=== PATIENT | male | born 1975 | race Caucasian/White ===

== ENCOUNTER 2016-11-07 16:43 | Inpatient (IN) | payer MEDICAID ==
[~2016-11-07] VITALS: Ht 177.8 cm; Wt 102.0 kg
[2016-11-07] MEDS ORDERED: SOD CHLORIDE 0.9% 1,000 ML IV STA ×2 (17:54→18:44)
[2016-11-07 18:07] LABS: ADD SCAN DIFF NO
[2016-11-07 18:21] LABS: ALBUMIN 4.1 g/dl (3.3-4.9); HEMATOCRIT 41.4 % (42.0-52.0); HEMOGLOBIN 13.4 g/dl (14.0-18.0); MEAN CORPUSCULAR HEMOGLOBIN 21.6 pg (29.0-33.0); MEAN CORPUSCULAR HGB CONC 32.4 g/dl (32.0-37.0); MEAN CORPUSCULAR VOLUME 66.8 fl (82.0-101.0); MEAN PLATELET VOLUME 10.7 fl (7.4-10.4); PLATELET COUNT 243 10^3/UL (140-415); POTASSIUM 3.9 mmol/L (3.5-5.1); RED CELL DISTRIBUTION WIDTH 17.3 % (11.5-14.5); WHITE BLOOD COUNT 8.2 10^3/ul (4.8-10.8)
[2016-11-07 18:23] LABS: BILIRUBIN,INDIRECT 0.3 mg/dl (0-1.1); BILIRUBIN,TOTAL 0.3 mg/dl (0.2-1.3); CREATININE 0.62 mg/dl (0.61-1.24)
[2016-11-07 18:24] LABS: ALBUMIN/GLOBULIN RATIO 1.36; CALCIUM 9.6 mg/dl (8.4-10.2); TOTAL PROTEIN 7.1 g/dl (6.1-8.1)
[2016-11-07 19:07] LABS: ADD UMIC YES; URINE BILIRUBIN (Dip) NEGATIVE (NEGATIVE); URINE BLOOD (Dip) NEGATIVE (NEGATIVE); URINE COLOR LT. YELLOW (YELLOW); URINE GLUCOSE (Dip) >=1000 % (NEGATIVE); URINE KETONES (Dip) NEGATIVE (NEGATIVE); URINE LEUKOCYTE ESTERASE (Dip) TRACE (NEGATIVE); URINE NITRITE (Dip) NEGATIVE (NEGATIVE); URINE TOTAL PROTEIN (Dip) NEGATIVE (NEGATIVE); URINE UROBILINOGEN (Dip) 0.2 E.U./dL (0.1-1.0)
[2016-11-07 19:15] LABS: URINE RBCS 0-2 /HPF (0)
[2016-11-07 19:16] LABS: BACTERIA,URINE FEW
[2016-11-07] MEDS ORDERED: SOD CHLORIDE 0.9% 1,000 ML IV SCH (19:35)
--- NOTE | 2016-11-07 19:42 | ERA ---
ER Documentation Chief Complaint Date/Time DATE: 11/07/16 TIME: 19:40 Chief Complaint SMALLLACERATION FROM PENIS. BUT ALSO POLYDIPSIA AND URINATING FRQUENTLY HPI This is a 41-year-old male who presents to the emergency room for evaluation of multiple complaints. His first complaint was erythema and redness around his penis for the past week. His second complaint is frequent urination, and polydipsia for the past 2 weeks. This patient denies any history of diabetes and came to the ER today for evaluation of both symptoms. ROS All systems reviewed and are negative except as per history of present illness. Medications Home Meds No Active Prescriptions or Reported Meds Allergies Allergies: Coded Allergies: No Known Allergy (Unverified , 11/07/16) PMhx/Soc Medical and Surgical Hx: pt denies Medical Hx, pt denies Surgical Hx History of Surgery: No Anesthesia Reaction: No Hx Neurological Disorder: No Hx Respiratory Disorders: No Hx Cardiac Disorders: No Hx Psychiatric Problems: No Hx Miscellaneous Medical Probl: No Hx Alcohol Use: No Hx Substance Use: No Hx Tobacco Use: No Smoking Status: Never smoker Physical Exam Vitals Vital Signs Date Time Temp Pulse Resp B/P Pulse Ox O2 Delivery O2 Flow Rate FiO2 11/07/16 18:32 95 16 142/93 97 Room Air 11/07/16 16:47 98.8 116 20 141/89 97 Physical Exam INITIAL VITAL SIGNS: Reviewed by me GENERAL: The patient is well developed and appropriate for usual state of health in no apparent distress HEENT: Pupils equal, round, and reactive to light. EOMI. There is no scleral icterus. NECK: C-spine is soft and supple, there is no meningismus. There is no cervical lymphadenopathy. LUNGS: Clear to auscultation bilaterally. There are no rales, wheezes or rhonchi. HEART: Regular rate and rhythm, no murmurs, clicks, rubs or gallops. ABDOMEN: Soft, non-tender, non-distended. There are bowel sounds in all four quadrants. No rebound or guarding. EXTREMITIES: There is no peripheral cyanosis or edema. No focal swelling or erythema. NEUROLOGICAL: The patient moves all four extremities with 5/5 strength. Cranial nerves II - XII are intact. Normal gait. Alert and oriented SKIN: There is no apparent rash or petechiae. : Balanitis noted of the glans of the penis, no visible discharge from the urethra, no scrotal edema. No negative skin sloughing. HEME/LYMPHATIC: There is no evidence of excessive bruising or lymphedema. PSYCHIATRIC: The patient does not appear anxious or depressed. Result Diagram: 11/07/16 1800 11/07/16 1800 Results 24 hrs Laboratory Tests Test 11/07/16 16:53 11/07/16 18:00 11/07/16 18:50 Bedside Glucose 546mg/dL Alanine Aminotransferase (ALT/SGPT) 31IU/L Albumin 4.1g/dl Albumin/Globulin Ratio 1.36 Alkaline Phosphatase 198IU/L Anion Gap 21 Aspartate Amino Transf (AST/SGOT) 31IU/L Blood Urea Nitrogen 9mg/dl Calcium Level 9.6mg/dl Carbon Dioxide Level 23mmol/L Chloride Level 99mmol/L Creatinine 0.62mg/dl Direct Bilirubin 0.00mg/dl Globulin 3.00g/dl Glucose Level 565mg/dl Hematocrit 41.4% Hemoglobin 13.4g/dl Indirect Bilirubin 0.3mg/dl Lipase 72U/L Mean Corpuscular Hemoglobin 21.6pg Mean Corpuscular Hemoglobin Concent 32.4g/dl Mean Corpuscular Volume 66.8fl Mean Platelet Volume 10.7fl Platelet Count 41318^3/UL Potassium Level 3.9mmol/L Red Blood Count 6.2010^6/ul Red Cell Distribution Width 17.3% Sodium Level 139mmol/L Total Bilirubin 0.3mg/dl Total Protein 7.1g/dl White Blood Count 8.210^3/ul Urine Bacteria FEW Urine Bilirubin NEGATIVE Urine Clarity CLEAR Urine Color LT. YELLOW Urine Epithelial Cells OCCASIONAL Urine Glucose >=1000% Urine Hemoglobin NEGATIVE Urine Ketones NEGATIVE Urine Leukocyte Esterase TRACE Urine Microscopic RBC 0-2/HPF Urine Microscopic WBC 10-25/HPF Urine Nitrite NEGATIVE Urine Specific [place] <=1.005 Urine Total Protein NEGATIVE Urine Urobilinogen 0.2 E.U./dL Urine pH 6.0 Current Medications Medications (Trade) Dose Ordered Sig/Alycia Route PRN Reason Start Time Stop Time Status Last Admin Dose Admin Sodium Chloride 1,000 ml @ 1,000 mls/hr Q1H STAT IV 11/07/16 17:54 11/07/16 18:53 DC 11/07/16 18:06 Sodium Chloride (NS) 1,000 ml @ 1,000 mls/hr Q1H STAT IV 11/07/16 18:44 11/07/16 19:43 11/07/16 18:52 Fluconazole 150 mg 150 mg ONCE ONCE PO 11/07/16 20:00 11/07/16 20:01 Sodium Chloride (NS) 1,000 ml @ 80 mls/hr [id number] IV 11/07/16 19:35 11/08/16 08:04 Ondansetron HCl (Zofran Inj) 4 mg BRIDGE ORDER PRN IV NAUSEA AND/OR VOMITING 11/07/16 20:00 11/08/16 19:59 Acetaminophen (Tylenol Tab) 650 mg ER BRIDGE PRN PO MILD PAIN/FEVER 11/07/16 20:00 11/08/16 19:59 Procedures/MDM This 41-year-old male presents to the ER for evaluation of polyuria, polydipsia , and erythema of the penis. When I evaluated this patient I did note balanitis of the penis. He did have a blood sugar obtained which was greater than 500 in triage. This patient has no history of diabetes. The patient has no follow-up as an outpatient, does not see primary care physician. This patient was given 2 L of IV fluid, he was given 15 units of subcutaneous insulin. Urinalysis does not show any ketones. This patient has no signs of DKA at this time. However given his symptoms, his elevated blood sugar, and is likely follow-up this patient will be placed in for admission at this time for further workup and possible p.o. medications for home. This patient will be placed on the [facility] floor and will be admitted under the care of Dr. Herrera. Departure Diagnosis: Primary Impression: New onset type 2 diabetes mellitus Additional Impressions: Balanitis Microcytic anemia Condition: Stable (0325) ATA CAMPBELL DO Nov 07, 2016 19:42
[2016-11-07 19:48] LABS: PLATELET ESTIMATE PLT APPEAR ADEQUATE; PLATELETS CLUMPS FEW
[2016-11-07] MEDS ORDERED: NA PHOSPHATE/BIPHOS 133 ML ENEMA PR PRN (20:00)
[2016-11-07] MEDS ORDERED: HYDROCODONE/APAP (5/325) TAB PO PRN (20:00)
[2016-11-07] MEDS ORDERED: DOCUSATE SODIUM 100 MG CAP PO PRN (20:00)
[2016-11-07] MEDS ORDERED: ALBUTEROL/IPRATROPIUM (NEB) 3 ML AMP HHN PRN (20:00)
[2016-11-07] MEDS ORDERED: LORAZEPAM 2 MG INJ IV PRN (20:00)
[2016-11-07] MEDS ORDERED: NACL 0.9% 3 ML SYG IV SCH (20:00)
[2016-11-07] MEDS ORDERED: FLUCONAZOLE 150 MG TAB PO ONE (20:00)
[2016-11-07] MEDS ORDERED: INSULIN REGULAR, HUMAN 100 UNIT/1 ML 3ML VIAL SC ONE (20:00)
[2016-11-07] MEDS ORDERED: MAGNESIUM HYDROXIDE 30ML CUP PO PRN (20:00)
[2016-11-07] MEDS ORDERED: ONDANSETRON 4 MG INJ IV PRN ×2 (20:00)
[2016-11-07] MEDS ORDERED: ACETAMINOPHEN 325 MG TAB PO PRN (20:00)
[2016-11-07] MEDS ORDERED: hydrALAzine 20 MG INJ IV PRN (20:00)
[2016-11-07] MEDS ORDERED: morphine 2 MG INJ IV PRN (20:00)
[2016-11-07] MEDS ORDERED: NITROGLYCERIN (SL) 0.4 MG TAB SL PRN (20:00)
[2016-11-07] MEDS ORDERED: SOD CHLORIDE 0.45% 1,000 ML IV SCH (21:12)
[2016-11-07 21:20] VITALS: BP 141/92; RESP 20
[2016-11-07] MEDS ORDERED: DEXTROSE 50% 50 ML SYRINGE IV PRN ×2 (21:30)
[2016-11-07] MEDS ORDERED: GLUCOSE GEL 15 GRAM TUBE PO PRN ×2 (21:30)
[2016-11-07] MEDS ORDERED: GLUCAGON 1 MG INJ IM PRN (21:30)
[2016-11-07] MEDS ORDERED: GLUCOSE GEL 15 GRAM TUBE BUCCAL PRN (21:30)
[2016-11-07 22:13] VITALS: Ht 177.8 cm; Wt 102.0 kg
[2016-11-07] MEDS: HEPARIN 5,000 UNIT/0.5 ML SYG SC SCH (22:36)
[2016-11-07] MEDS: CEFTRIAXONE 1 GM/50 ML (PMX) 50 ML IVPB SCH (22:37)
[2016-11-07] MEDS: INSULIN GLARGINE [LANtus] 3 ML PEN SC SCH (23:47)
[2016-11-07] MEDS: INSULIN ASPART [NOVOLOG] 3 ML PEN SC SCH (23:48)
[2016-11-08] MEDS: SOD CHLORIDE 0.9% 1,000 ML IV SCH ×4 (02:30→21:54)
--- NOTE | 2016-11-08 03:28 | HP ---
DATE OF ADMISSION: 11/07/2016 The patient was seen and examined by me on 11/07/2016 at 8:30 p.m. This is a 41-year-old male. CHIEF COMPLAINT: Penile pain and polydipsia and urinary frequency. HISTORY OF PRESENT ILLNESS: A 41-year-old male with no significant past medical history who has bee n complaining of redness and pain as well as erythema around his penis for the past week. He has al so had increased urinary frequency and polydipsia for the last 2 weeks as well. Denies any prior hi story of any diabetes. No chest pain. No shortness of breath. No headaches or dizziness or loss o f consciousness. No fevers or chills. No nausea, vomiting. No diarrhea and no constipation. When he came into the ER, his blood sugar was found to be 546 and his CO2 levels were normal. PAST MEDICAL HISTORY: As stated above. ALLERGIES: NO KNOWN DRUG ALLERGIES. MEDICATIONS AT HOME: None. PAST SURGICAL HISTORY: None. SOCIAL HISTORY: Negative for smoking, drinking, or IV drug abuse. FAMILY HISTORY: Noncontributory. PHYSICAL EXAMINATION: VITAL SIGNS: Today, T-max 98.8, pulse 116 to 95, respirations 16 to 20, blood pressure 141/89, satu rating at 97% on room air. GENERAL: The patient is lying in bed, answering questions. No acute distress. HEENT: Pupils equal, round, react to light. Extraocular muscles intact. NECK: Supple, no thyromegaly. LUNGS: Clear to auscultation bilaterally. CARDIOVASCULAR: S1, S2 heard. No rubs or gallops. ABDOMEN: Soft, nontender, nondistended. Normal bowel sounds. No rebound or guarding. MUSCULOSKELETAL: No lower extremity edema bilaterally. NEUROLOGIC: No focal deficits. GENITOURINARY: There is balanitis noted around the glans of the penis. No discharge from the ureth ra. No scrotal edema. PSYCHIATRIC: Normal mood and affect. LABORATORIES: CBC is normal. This comprehensive metabolic panel is normal except the sugar was 565 and the alkaline phosphatase was 198. UA shows trace leukocyte esterase positive, a few bacteria. ASSESSMENT AND PLAN: A 41-year-old male coming in with elevated blood sugars and redness and erythe ma around the penile area, signs of balanitis. 1. Elevated blood sugars. Again, admit the patient to med/surg floor. We will check an A1c. Put him on IV fluids, give him insulin as well, put him on Lantus and moderate insulin sliding scale. M ost likely the patient has signs of diabetes. He denies any prior history of diabetes. Will check a TSH, A1c and lipid panel as well. Tylenol p.r.n. pain and fevers as well, again, IV fluids. He d id get 15 units of subcutaneous insulin regular in the emergency room. 2. Balanitis, again most likely the diagnosis of his erythema of the penis, will put patient on flu conazole as well. 3. Increased urinary frequency. There are signs of a possible urinary tract infection on the UA. UA is positive, put him on Rocephin antibiotics. Follow up final culture results as well. 4. Microcytic anemia. No present issues. Continue to monitor for now. 5. Gastrointestinal prophylaxis, proton pump inhibitor. 6. Deep venous thrombosis prophylaxis, heparin subQ. Dictated By: PIERRE DAIGLE Conf#: [id number] DID#: [id number]
[2016-11-08 06:02] LABS: CHOL/HDL RATIO 4.9 RATIO
[2016-11-08] MEDS: PANTOPRAZOLE (EC) 40 MG TAB PO SCH (06:02)
[2016-11-08 06:30] LABS: THYROID STIMULATING HORMONE 2.17 MIU/L (0.465-4.680)
[2016-11-08 06:47] LABS: ADD SCAN DIFF NO
[2016-11-08 06:54] LABS: BASOPHILS % 0.3 % (0.0-2.0); EOSINOPHILS # 0.2 10^3/ul (0.0-0.5); EOSINOPHILS % 3.1 % (0.0-7.0); HEMATOCRIT 38.5 % (42.0-52.0); HEMOGLOBIN 12.4 g/dl (14.0-18.0); LYMPHOCYTES # 2.4 10^3/ul (0.8-2.9); LYMPHOCYTES % 35.7 % (15.0-51.0); MEAN CORPUSCULAR HEMOGLOBIN 21.7 pg (29.0-33.0); MEAN CORPUSCULAR HGB CONC 32.2 g/dl (32.0-37.0); MEAN CORPUSCULAR VOLUME 67.3 fl (82.0-101.0); MEAN PLATELET VOLUME 11.1 fl (7.4-10.4); MONOCYTE # 0.8 10^3/ul (0.3-0.9); MONOCYTES % 11.6 % (0.0-11.0); NEUTROPHIL # 3.3 10^3/ul (1.6-7.5); PLATELET COUNT 234 10^3/UL (140-415); RED BLOOD COUNT 5.72 10^6/ul (4.70-6.10); RED CELL DISTRIBUTION WIDTH 18.1 % (11.5-14.5); WHITE BLOOD COUNT 6.7 10^3/ul (4.8-10.8)
[2016-11-08 07:37] LABS: POTASSIUM 3.5 mmol/L (3.5-5.1)
[2016-11-08 07:40] LABS: CREATININE 0.58 mg/dl (0.61-1.24)
[2016-11-08 07:41] LABS: CALCIUM 8.5 mg/dl (8.4-10.2); MAGNESIUM 1.9 mg/dl (1.7-2.5); PHOSPHORUS 3.6 mg/dl (2.5-4.9)
[2016-11-08 07:45] VITALS: BP 131/86; RESP 16
[2016-11-08] MEDS: FLUCONAZOLE 100 MG/NS (PMX) 50 ML IVPB SCH (08:00)
[2016-11-08] MEDS: HEPARIN 5,000 UNIT/0.5 ML SYG SC SCH ×2 (08:10→21:03)
[2016-11-08] MEDS: INSULIN ASPART [NOVOLOG] 3 ML PEN SC SCH ×4 (08:11→21:02)
[2016-11-08 13:14] LABS: IRON 148 ug/dl (35-150)
[2016-11-08 13:24] LABS: TOTAL IRON BINDING CAPACITY 290 ug/dl (241-421)
--- NOTE | 2016-11-08 13:50 | PN ---
DATE: 11/08/2016 TIME OF EVALUATION: 1:15 p.m. SUBJECTIVE DATA: Blood sugar is fairly well controlled. Complains of penile pain and difficulty in initiating urinary stream. OBJECTIVE DATA: VITAL SIGNS: Temperature 98.0, pulse rate 87, respiratory rate 60, blood pressure 131/86, oxygen saturation 97% on room air. GENERAL: This is an obese male lying in bed in no apparent distress. HEENT: Head normocephalic and atraumatic. Eyes: Anicteric sclerae. Conjunctivae clear. Right eye nonfunctional. NECK: Supple. No JVD noticed. RESPIRATORY: Bilaterally clear to auscultation. No adventitious breath sounds. No use of accessory muscles of respiration. CARDIAC: Regular rate and rhythm. No murmurs. ABDOMEN: Soft, nontender and nondistended. Bowel sounds positive in all 4 quadrants. GENITOURINARY: Uncircumcised penis with phimosis and erythema and edema of the penile tip. Unable to visualize the glans penis because of phimosis. No scrotal swelling. No secretions or discharges from the penis. EXTREMITIES: No cyanosis, no clubbing, no edema. Peripheral pulses palpable. NEUROLOGIC: The patient is awake, alert and oriented. Cranial nerves are grossly intact. LABORATORY AND DIAGNOSTIC DATA: WBC 6.7, hemoglobin 12.4, hematocrit 38.5, platelet count 234. Sodium 144, potassium 3.5, chloride 106, carbon dioxide 26 , anion gap 16, BUN 7, creatinine 0.58, glucose 204, calcium 8.5, phosphorus 3.6 , magnesium 1.9. ASSESSMENT AND PLAN: 1. Type 2 diabetes mellitus. New onset. Hemoglobin A1c 12.0. Continue sliding scale insulin along with Lantus insulin. Diabetes education consult ordered. Dietary consult ordered. 2. Balanitis with underlying phimosis. The patient on antibiotics. Called the on-call urologist, Dr. Busby on 11/08/2016 at 1:20 p.m. As per the conversation with Dr. Busby, the patient most probably needs a circumcision. However, "this can be done as outpatient." Therefore to treat the patient with antibiotics and to discharge the patient home to be followed up with outpatient urology as per Dr. Busby. 3. Obesity. BMI of 32.3 kilograms per meter squared. Dietary consult ordered. Weight reduction advised. 4. Dyslipidemia with hypertriglyceridemia. Will start the patient on fish oil. 5. Fluid, electrolytes and nutrition. Carbohydrate controlled diet. 6. Microcytic hypochromic anemia. Etiology unclear. We will obtain an iron panel on this patient. We will monitor the H and H closely. 7. Deep vein thrombosis prophylaxis. Subcutaneous heparin. 8. Gastrointestinal prophylaxis. Proton pump inhibitors. PLAN: Continue antibiotics. Await further diabetes education input. Await dietary consult. Case discussed with Dr. Eller. RACQUEL ELLER MD, AM/[facility]ALO Conf#: [id number] DID#: [id number] MTDD
[2016-11-08 20:57] VITALS: BP 136/84; RESP 20
[2016-11-08] MEDS: FISH OIL 1,000 MG CAP PO SCH (20:57)
[2016-11-08] MEDS: CEFTRIAXONE 1 GM/50 ML (PMX) 50 ML IVPB SCH (20:57)
[2016-11-08] MEDS: INSULIN GLARGINE [LANtus] 3 ML PEN SC SCH (21:02)
[2016-11-09] MEDS: SOD CHLORIDE 0.9% 1,000 ML IV SCH ×5 (00:09→18:46)
[2016-11-09 05:41] LABS: ADD SCAN DIFF NO
[2016-11-09] MEDS: PANTOPRAZOLE (EC) 40 MG TAB PO SCH (05:53)
[2016-11-09 05:56] LABS: BASOPHILS % 0.5 % (0.0-2.0); EOSINOPHILS # 0.2 10^3/ul (0.0-0.5); EOSINOPHILS % 2.9 % (0.0-7.0); HEMATOCRIT 40.6 % (42.0-52.0); HEMOGLOBIN 12.9 g/dl (14.0-18.0); LYMPHOCYTES # 2.1 10^3/ul (0.8-2.9); LYMPHOCYTES % 32.5 % (15.0-51.0); MEAN CORPUSCULAR HEMOGLOBIN 21.6 pg (29.0-33.0); MEAN CORPUSCULAR HGB CONC 31.8 g/dl (32.0-37.0); MEAN CORPUSCULAR VOLUME 68.1 fl (82.0-101.0); MEAN PLATELET VOLUME 10.6 fl (7.4-10.4); MONOCYTE # 0.7 10^3/ul (0.3-0.9); NEUTROPHIL # 3.4 10^3/ul (1.6-7.5); NEUTROPHILS % 52.6 % (39.0-77.0); PLATELET COUNT 252 10^3/UL (140-415); RED BLOOD COUNT 5.96 10^6/ul (4.70-6.10); RED CELL DISTRIBUTION WIDTH 17.8 % (11.5-14.5); WHITE BLOOD COUNT 6.5 10^3/ul (4.8-10.8)
[2016-11-09 06:04] LABS: MAGNESIUM 2.1 mg/dl (1.7-2.5); PHOSPHORUS 2.9 mg/dl (2.5-4.9)
[2016-11-09 06:35] LABS: POTASSIUM 3.8 mmol/L (3.5-5.1)
[2016-11-09 06:38] LABS: CREATININE 0.66 mg/dl (0.61-1.24)
[2016-11-09 06:39] LABS: CALCIUM 8.3 mg/dl (8.4-10.2)
[2016-11-09 07:37] VITALS: BP 132/91; RESP 18
[2016-11-09] MEDS: FLUCONAZOLE 100 MG/NS (PMX) 50 ML IVPB SCH (08:02)
[2016-11-09] MEDS: FISH OIL 1,000 MG CAP PO SCH ×2 (08:02→20:34)
[2016-11-09] MEDS: INSULIN ASPART [NOVOLOG] 3 ML PEN SC SCH ×4 (08:16→20:34)
[2016-11-09] MEDS: HEPARIN 5,000 UNIT/0.5 ML SYG SC SCH ×2 (08:17→20:36)
[2016-11-09] MEDS: CHOLECALCIFEROL 1,000 UNIT TAB PO SCH (09:06)
[2016-11-09 14:43] LABS: TOTAL CELLS COUNTED % 100
--- NOTE | 2016-11-09 16:56 | PN ---
Date/Time of Note Date/Time of Note DATE: 11/09/16 TIME: 16:54 Assessment/Plan VTE Prophylaxis VTE Prophylaxis Intervention: heparin Lines/Catheters IV Catheter Type (from Nrs): Peripheral IV Assessment/Plan Assessment/Plan 1. Type 2 diabetes mellitus. New onset. Hemoglobin A1c 12.0. Continue sliding scale insulin along with Lantus insulin. Diabetes education consult ordered. Dietary consult ordered. 2. Scrotal cellulitis/balanitis and underlying phimosis- on IV abx Called the on-call urologist, Dr. Busby on 11/08/2016 at 1:20 p.m. As per the conversation with Dr. Busby, the patient most probably needs a circumcision. However, "this can be done as outpatient." Therefore to treat the patient with antibiotics and to discharge the patient home to be followed up with outpatient urology as per Dr. Busby. 3. Obesity. BMI of 32.3 kilograms per meter squared. Dietary consult ordered. Weight reduction advised. 4. Dyslipidemia with hypertriglyceridemia on fish oil 5. Fluid, electrolytes and nutrition. Carbohydrate controlled diet. 6. Microcytic hypochromic anemia. Etiology unclear. We will obtain an iron panel on this patient. We will monitor the H and H closely. 7. Deep vein thrombosis prophylaxis. Subcutaneous heparin. 8. Gastrointestinal prophylaxis. Proton pump inhibitors. PLAN: Continue IV abx, Blood sugar control lantus pt will need few more days of IV abx and better sugar control wll follow up Subjective 24 Hr Interval Summary Free Text/Dictation still c/o significant scrotal pain, afebrile, BP stable Exam/Review of Systems Vital Signs Vitals Vital Signs Date Time Temp Pulse Resp B/P Pulse Ox O2 Delivery O2 Flow Rate FiO2 11/09/16 07:37 98.0 80 18 132/91 97 11/07/16 20:43 Room Air Intake and Output 11/08/16 11/08/16 11/09/16 15:00 23:00 07:00 Intake Total 2009 ml 1600 ml Balance 2009 ml 1600 ml Exam GENERAL: This is an obese male lying in bed in no apparent distress. HEENT: Head normocephalic and atraumatic. Eyes: Anicteric sclerae. Conjunctivae clear. Right eye nonfunctional. NECK: Supple. No JVD noticed. RESPIRATORY: Bilaterally clear to auscultation. No adventitious breath sounds. No use of accessory muscles of respiration. CARDIAC: Regular rate and rhythm. No murmurs. ABDOMEN: Soft, nontender and nondistended. Bowel sounds positive in all 4 quadrants. GENITOURINARY: Uncircumcised penis with phimosis and erythema and edema of the penile tip. Unable to visualize the glans penis because of phimosis. No scrotal swelling. No secretions or discharges from the penis. EXTREMITIES: No cyanosis, no clubbing, no edema. Peripheral pulses palpable. NEUROLOGIC: The patient is awake, alert and oriented. Cranial nerves are grossly intact. Results Result Diagram: 11/09/16 0515 11/09/16 0515 Results 24 hrs Laboratory Tests Test 11/08/16 16:57 11/08/16 20:58 11/09/16 05:15 11/09/16 07:45 Bedside Glucose 231 H 258 H 167 Anion Gap 15 Basophils # 0.0 Basophils % 0.5 Blood Urea Nitrogen 6 L Calcium Level 8.3 L Carbon Dioxide Level 28 Chloride Level 105 Creatinine 0.66 Eosinophils # 0.2 Eosinophils % 2.9 Glucose Level 181 HIV (1&2) Antibody NEGATIVE Hematocrit 40.6 L Hemoglobin 12.9 L Lymphocytes # 2.1 Lymphocytes % 32.5 Magnesium Level 2.1 Mean Corpuscular Hemoglobin 21.6 L Mean Corpuscular Hemoglobin Concent 31.8 L Mean Corpuscular Volume 68.1 L Mean Platelet Volume 10.6 H Monocytes # 0.7 Monocytes % 11.0 Neutrophils # 3.4 Neutrophils % 52.6 Nucleated Red Blood Cells # 0.0 Nucleated Red Blood Cells % 0.0 Phosphorus Level 2.9 Platelet Count 252 Potassium Level 3.8 Red Blood Count 5.96 Red Cell Distribution Width 17.8 H Sodium Level 144 White Blood Count 6.5 Test 11/09/16 11:36 Bedside Glucose 264 H Medications Medications Current Medications Ondansetron HCl (Zofran Inj) 4 mg Q6H PRN IV NAUSEA AND/OR VOMITING; Start at 20:00 Acetaminophen (Tylenol Tab) 650 mg Q6H PRN PO PAIN LEVEL 1-3 OR FEVER; Start at 20:00 Acetaminophen/ Hydrocodone Bitart ([place] (5/325)) 1 tab Q6H PRN PO MODERATE PAIN LEVEL 4-6; Start 11/07/16 at 20:00 Morphine Sulfate (morphine) 2 mg Q4H PRN IV SEVERE PAIN LEVEL 7-10; Start 11/07 at 20:00 Docusate Sodium (Colace) 100 mg Q12H PRN PO CONSTIPATION; Start 11/07/16 at 20: 00 Magnesium Hydroxide (Milk Of Mag) 30 ml DAILY PRN PO CONSTIPATION; Start at 20:00 Sodium Biphosphate/ Sodium Phosphate (Fleet Enema) 133 ml DAILY PRN [place] CONSTIPATION; Start 11/07/16 at 20:00 Pantoprazole (Protonix Tab) 40 mg DAILY@06 PO Last administered on 11/09/16 05 :53; Admin Dose 40 MG; Start 11/08/16 at 06:00 Heparin Sodium (Porcine) (Heparin (5000 Units/0.5 ml)) 5,000 unit Q12 SC Last administered on 11/09/16 08:17; Admin Dose 5,000 UNIT; Start 11/07/16 at 21:00 Lorazepam (Ativan) 0.5 mg Q6H PRN IV ANXIETY; Start 11/07/16 at 20:00 Hydralazine HCl (Apresoline) 10 mg Q6H PRN IV ELEVATED BLOOD PRESSURE; Start at 20:00 Nitroglycerin (Nitroglycerin (Sl Tab) 0.4 Mg) 1 tab Q5M PRN SL ANGINA; Start at 20:00 Insulin Glargine 20 unit 20 unit DAILY@20 SC Last administered on 11/08/16 21: 02; Admin Dose 20 UNIT; Start 11/07/16 at 22:00 Fluconazole/ Sodium Chloride 50 ml @ 50 mls/hr Q24H IVPB Last administered on 08:02; Admin Dose 50 MLS/HR; Start 11/08/16 at 09:00 Ceftriaxone Sodium (Rocephin) 50 ml @ 100 mls/hr Q24H IVPB Last administered on 11/08/16 20:57; Admin Dose 100 MLS/HR; Start 11/07/16 at 21:30 Miscellaneous Information 1 ea NOTE XX ; Start 11/07/16 at 21:30 Glucose (Glutose) 15 gm Q15M PRN PO DECREASED GLUCOSE; Start 11/07/16 at 21:30 Glucose (Glutose) 22.5 gm Q15M PRN PO DECREASED GLUCOSE; Start 11/07/16 at 21: 30 Dextrose (D50w Syringe) 25 ml Q15M PRN IV DECREASED GLUCOSE; Start 11/07/16 at 21:30 Dextrose (D50w Syringe) 50 ml Q15M PRN IV DECREASED GLUCOSE; Start 11/07/16 at 21:30 Glucagon (Glucagen) 1 mg Q15M PRN IM DECREASED GLUCOSE; Start 11/07/16 at 21:30 Glucose 15 gm 15 gm Q15M PRN BUCCAL DECREASED GLUCOSE; Start 11/07/16 at 21:30 Sodium Chloride (NS) 1,000 ml @ 150 mls/hr Q6H40M IV Last administered on 11/09 07:24; Admin Dose 150 MLS/HR; Start 11/08/16 at 02:30 Fish Oil (Fish Oil) 1,000 mg BID PO Last administered on 11/09/16 08:02; Admin Dose 1,000 MG; Start 11/08/16 at 21:00 Cholecalciferol (Vitamin D) 1,000 unit DAILY PO Last administered on 11/09/16 09:06; Admin Dose 1,000 UNIT; Start 11/09/16 at 09:00 THIEN MCCARTNEY MD Nov 09, 2016 16:56
[2016-11-09 20:21] VITALS: BP 133/89; RESP 20
[2016-11-09] MEDS: INSULIN GLARGINE [LANtus] 3 ML PEN SC SCH (20:36)
[2016-11-09] MEDS: CEFTRIAXONE 1 GM/50 ML (PMX) 50 ML IVPB SCH (21:52)
[2016-11-09] MEDS: ACETAMINOPHEN 325 MG TAB PO PRN (21:55)
[2016-11-10] MEDS: SOD CHLORIDE 0.9% 1,000 ML IV SCH ×5 (00:55→22:29)
[2016-11-10] MEDS: PANTOPRAZOLE (EC) 40 MG TAB PO SCH (05:43)
[2016-11-10] MEDS: INSULIN ASPART [NOVOLOG] 3 ML PEN SC SCH ×4 (07:58→21:10)
[2016-11-10 08:18] VITALS: BP 147/99; RESP 16
[2016-11-10 08:50] LABS: ADD SCAN DIFF NO
[2016-11-10 08:59] LABS: BASOPHILS % 0.4 % (0.0-2.0); EOSINOPHILS # 0.2 10^3/ul (0.0-0.5); EOSINOPHILS % 2.3 % (0.0-7.0); HEMATOCRIT 42.4 % (42.0-52.0); HEMOGLOBIN 13.3 g/dl (14.0-18.0); LYMPHOCYTES # 2.1 10^3/ul (0.8-2.9); MEAN CORPUSCULAR HEMOGLOBIN 21.3 pg (29.0-33.0); MEAN CORPUSCULAR HGB CONC 31.4 g/dl (32.0-37.0); MEAN CORPUSCULAR VOLUME 68.1 fl (82.0-101.0); MONOCYTE # 0.6 10^3/ul (0.3-0.9); MONOCYTES % 9.1 % (0.0-11.0); NEUTROPHIL # 4.1 10^3/ul (1.6-7.5); NEUTROPHILS % 57.8 % (39.0-77.0); PLATELET COUNT 258 10^3/UL (140-415); RED BLOOD COUNT 6.23 10^6/ul (4.70-6.10); RED CELL DISTRIBUTION WIDTH 18.6 % (11.5-14.5)
[2016-11-10 09:12] LABS: POTASSIUM 3.8 mmol/L (3.5-5.1)
[2016-11-10 09:15] LABS: CREATININE 0.55 mg/dl (0.61-1.24)
[2016-11-10 09:16] LABS: CALCIUM 8.5 mg/dl (8.4-10.2)
[2016-11-10] MEDS: FLUCONAZOLE 100 MG/NS (PMX) 50 ML IVPB SCH (09:41)
[2016-11-10] MEDS: FISH OIL 1,000 MG CAP PO SCH ×2 (09:41→21:05)
[2016-11-10] MEDS: CHOLECALCIFEROL 1,000 UNIT TAB PO SCH (09:41)
[2016-11-10] MEDS: HEPARIN 5,000 UNIT/0.5 ML SYG SC SCH ×2 (09:48→21:08)
--- NOTE | 2016-11-10 11:29 | PN ---
Date/Time of Note Date/Time of Note DATE: 11/10/16 TIME: 11:28 Assessment/Plan VTE Prophylaxis VTE Prophylaxis Intervention: SCD's Lines/Catheters IV Catheter Type (from Nrs): Peripheral IV Assessment/Plan Assessment/Plan 1. Type 2 diabetes mellitus. New onset. Hemoglobin A1c 12.0. Continue sliding scale insulin along with Lantus insulin. Diabetes education consult ordered. Dietary consult ordered. 2. Scrotal cellulitis/balanitis and underlying phimosis- on IV abx Called the on-call urologist, Dr. Busby on 11/08/2016 at 1:20 p.m. As per the conversation with Dr. Busby, the patient most probably needs a circumcision. However, "this can be done as outpatient." Therefore to treat the patient with antibiotics and to discharge the patient home to be followed up with outpatient urology as per Dr. Busby. 3. Obesity. BMI of 32.3 kilograms per meter squared. Dietary consult ordered. Weight reduction advised. 4. Dyslipidemia with hypertriglyceridemia on fish oil 5. Fluid, electrolytes and nutrition. Carbohydrate controlled diet. 6. Microcytic hypochromic anemia. Etiology unclear. We will obtain an iron panel on this patient. We will monitor the H and H closely. 7. Deep vein thrombosis prophylaxis. Subcutaneous heparin. 8. Gastrointestinal prophylaxis. Proton pump inhibitors. PLAN: Continue IV abx, Blood sugar control lantus pt will need few more days of IV abx and better sugar control wll follow up Subjective 24 Hr Interval Summary Free Text/Dictation still has bad cellultiis, pain 6/10, afebrile, BP stable Exam/Review of Systems Vital Signs Vitals Vital Signs Date Time Temp Pulse Resp B/P Pulse Ox O2 Delivery O2 Flow Rate FiO2 11/10/16 08:18 98.2 87 16 147/99 97 11/07/16 20:43 Room Air Intake and Output 11/09/16 11/09/16 11/10/16 15:00 23:00 07:00 Intake Total 250 ml 3630 ml 2100 ml Balance 250 ml 3630 ml 2100 ml Exam GENERAL: This is an obese male lying in bed in no apparent distress. HEENT: Head normocephalic and atraumatic. Eyes: Anicteric sclerae. Conjunctivae clear. Right eye nonfunctional. NECK: Supple. No JVD noticed. RESPIRATORY: Bilaterally clear to auscultation. No adventitious breath sounds. No use of accessory muscles of respiration. CARDIAC: Regular rate and rhythm. No murmurs. ABDOMEN: Soft, nontender and nondistended. Bowel sounds positive in all 4 quadrants. GENITOURINARY: Uncircumcised penis with phimosis and erythema and edema of the penile tip. Unable to visualize the glans penis because of phimosis. No scrotal swelling. No secretions or discharges from the penis. EXTREMITIES: No cyanosis, no clubbing, no edema. Peripheral pulses palpable. NEUROLOGIC: The patient is awake, alert and oriented. Cranial nerves are grossly intact. Results Result Diagram: 11/10/16 0754 11/10/16 0754 Results 24 hrs Laboratory Tests Test 11/09/16 11:36 11/09/16 20:34 11/10/16 07:52 11/10/16 07:54 Bedside Glucose 264 H 144 144 Anion Gap 17 H Basophils # 0.0 Basophils % 0.4 Blood Urea Nitrogen 9 Calcium Level 8.5 Carbon Dioxide Level 25 Chloride Level 105 Creatinine 0.55 L Eosinophils # 0.2 Eosinophils % 2.3 Glucose Level 136 # Hematocrit 42.4 Hemoglobin 13.3 L Lymphocytes # 2.1 Lymphocytes % 30.0 Mean Corpuscular Hemoglobin 21.3 L Mean Corpuscular Hemoglobin Concent 31.4 L Mean Corpuscular Volume 68.1 L Mean Platelet Volume 11.0 H Monocytes # 0.6 Monocytes % 9.1 Neutrophils # 4.1 Neutrophils % 57.8 Nucleated Red Blood Cells # 0.0 Nucleated Red Blood Cells % 0.0 Platelet Count 258 Potassium Level 3.8 Red Blood Count 6.23 H Red Cell Distribution Width 18.6 H Sodium Level 143 White Blood Count 7.0 Medications Medications Current Medications Ondansetron HCl (Zofran Inj) 4 mg Q6H PRN IV NAUSEA AND/OR VOMITING; Start at 20:00 Acetaminophen (Tylenol Tab) 650 mg Q6H PRN PO PAIN LEVEL 1-3 OR FEVER Last administered on 11/09/16t 21:55; Admin Dose 650 MG; Start 11/07/16 at 20:00 Acetaminophen/ Hydrocodone Bitart ([place] (5/325)) 1 tab Q6H PRN PO MODERATE PAIN LEVEL 4-6; Start 11/07/16 at 20:00 Morphine Sulfate (morphine) 2 mg Q4H PRN IV SEVERE PAIN LEVEL 7-10; Start 11/07 at 20:00 Docusate Sodium (Colace) 100 mg Q12H PRN PO CONSTIPATION; Start 11/07/16 at 20: 00 Magnesium Hydroxide (Milk Of Mag) 30 ml DAILY PRN PO CONSTIPATION; Start at 20:00 Sodium Biphosphate/ Sodium Phosphate (Fleet Enema) 133 ml DAILY PRN [place] CONSTIPATION; Start 11/07/16 at 20:00 Pantoprazole (Protonix Tab) 40 mg DAILY@06 PO Last administered on 11/10/16 05 :43; Admin Dose 40 MG; Start 11/08/16 at 06:00 Heparin Sodium (Porcine) (Heparin (5000 Units/0.5 ml)) 5,000 unit Q12 SC Last administered on 11/10/16 09:48; Admin Dose 5,000 UNIT; Start 11/07/16 at 21:00 Lorazepam (Ativan) 0.5 mg Q6H PRN IV ANXIETY; Start 11/07/16 at 20:00 Hydralazine HCl (Apresoline) 10 mg Q6H PRN IV ELEVATED BLOOD PRESSURE; Start at 20:00 Nitroglycerin (Nitroglycerin (Sl Tab) 0.4 Mg) 1 tab Q5M PRN SL ANGINA; Start at 20:00 Insulin Glargine 20 unit 20 unit DAILY@20 SC Last administered on 11/09/16 20: 36; Admin Dose 20 UNIT; Start 11/07/16 at 22:00 Fluconazole/ Sodium Chloride 50 ml @ 50 mls/hr Q24H IVPB Last administered on 09:41; Admin Dose 50 MLS/HR; Start 11/08/16 at 09:00 Ceftriaxone Sodium (Rocephin) 50 ml @ 100 mls/hr Q24H IVPB Last administered on 11/09/16 21:52; Admin Dose 100 MLS/HR; Start 11/07/16 at 21:30 Miscellaneous Information 1 ea NOTE XX ; Start 11/07/16 at 21:30 Glucose (Glutose) 15 gm Q15M PRN PO DECREASED GLUCOSE; Start 11/07/16 at 21:30 Glucose (Glutose) 22.5 gm Q15M PRN PO DECREASED GLUCOSE; Start 11/07/16 at 21: 30 Dextrose (D50w Syringe) 25 ml Q15M PRN IV DECREASED GLUCOSE; Start 11/07/16 at 21:30 Dextrose (D50w Syringe) 50 ml Q15M PRN IV DECREASED GLUCOSE; Start 11/07/16 at 21:30 Glucagon (Glucagen) 1 mg Q15M PRN IM DECREASED GLUCOSE; Start 11/07/16 at 21:30 Glucose 15 gm 15 gm Q15M PRN BUCCAL DECREASED GLUCOSE; Start 11/07/16 at 21:30 Sodium Chloride (NS) 1,000 ml @ 150 mls/hr Q6H40M IV Last administered on 11/10 07:55; Admin Dose 150 MLS/HR; Start 11/08/16 at 02:30 Fish Oil (Fish Oil) 1,000 mg BID PO Last administered on 11/10/16 09:41; Admin Dose 1,000 MG; Start 11/08/16 at 21:00 Cholecalciferol (Vitamin D) 1,000 unit DAILY PO Last administered on 11/10/16 09:41; Admin Dose 1,000 UNIT; Start 11/09/16 at 09:00 THIEN MCCARTNEY MD Nov 10, 2016 11:29
[2016-11-10 20:00] VITALS: BP 139/88; PULSE 74; RESP 18
[2016-11-10] MEDS: INSULIN GLARGINE [LANtus] 3 ML PEN SC SCH (21:08)
[2016-11-10] MEDS: CEFTRIAXONE 1 GM/50 ML (PMX) 50 ML IVPB SCH (22:28)
[2016-11-11] MEDS: SOD CHLORIDE 0.9% 1,000 ML IV SCH ×3 (03:50→16:47)
[2016-11-11] MEDS: PANTOPRAZOLE (EC) 40 MG TAB PO SCH (05:25)
[2016-11-11 07:39] LABS: ADD SCAN DIFF NO
[2016-11-11 07:43] LABS: BASOPHILS % 0.4 % (0.0-2.0); EOSINOPHILS # 0.2 10^3/ul (0.0-0.5); EOSINOPHILS % 2.3 % (0.0-7.0); HEMOGLOBIN 13.3 g/dl (14.0-18.0); LYMPHOCYTES # 2.1 10^3/ul (0.8-2.9); LYMPHOCYTES % 28.3 % (15.0-51.0); MEAN CORPUSCULAR HGB CONC 30.9 g/dl (32.0-37.0); MEAN CORPUSCULAR VOLUME 67.8 fl (82.0-101.0); MEAN PLATELET VOLUME 10.7 fl (7.4-10.4); MONOCYTE # 0.8 10^3/ul (0.3-0.9); MONOCYTES % 10.2 % (0.0-11.0); NEUTROPHIL # 4.3 10^3/ul (1.6-7.5); NEUTROPHILS % 58.3 % (39.0-77.0); PLATELET COUNT 265 10^3/UL (140-415); RED BLOOD COUNT 6.34 10^6/ul (4.70-6.10); RED CELL DISTRIBUTION WIDTH 18.7 % (11.5-14.5); WHITE BLOOD COUNT 7.4 10^3/ul (4.8-10.8)
[2016-11-11 07:49] VITALS: BP 133/88; RESP 19
[2016-11-11 07:58] LABS: POTASSIUM 3.9 mmol/L (3.5-5.1)
[2016-11-11 08:01] LABS: CREATININE 0.6 mg/dl (0.61-1.24)
[2016-11-11 08:02] LABS: CALCIUM 8.8 mg/dl (8.4-10.2)
[2016-11-11] MEDS: INSULIN ASPART [NOVOLOG] 3 ML PEN SC SCH ×4 (08:15→20:21)
[2016-11-11] MEDS: FISH OIL 1,000 MG CAP PO SCH ×2 (08:43→20:10)
[2016-11-11] MEDS: CHOLECALCIFEROL 1,000 UNIT TAB PO SCH (08:43)
[2016-11-11] MEDS: FLUCONAZOLE 100 MG/NS (PMX) 50 ML IVPB SCH (08:43)
[2016-11-11] MEDS: HEPARIN 5,000 UNIT/0.5 ML SYG SC SCH ×2 (08:49→20:13)
[2016-11-11 19:43] VITALS: BP 119/74; RESP 18
[2016-11-11] MEDS: ACETAMINOPHEN 325 MG TAB PO PRN (20:09)
[2016-11-11] MEDS: INSULIN GLARGINE [LANtus] 3 ML PEN SC SCH (20:20)
--- NOTE | 2016-11-11 20:48 | PN ---
Date/Time of Note Date/Time of Note DATE: 11/11/16 TIME: 20:47 Assessment/Plan VTE Prophylaxis VTE Prophylaxis Intervention: heparin Lines/Catheters IV Catheter Type (from Nrs): Peripheral IV Assessment/Plan Assessment/Plan 1. Type 2 diabetes mellitus. New onset. Hemoglobin A1c 12.0. Continue sliding scale insulin along with Lantus insulin. Diabetes education consult ordered. Dietary consult ordered. 2. Scrotal cellulitis/balanitis and underlying phimosis- on IV abx Called the on-call urologist, Dr. Busby on 11/08/2016 at 1:20 p.m. As per the conversation with Dr. Busby, the patient most probably needs a circumcision. However, "this can be done as outpatient." Therefore to treat the patient with antibiotics and to discharge the patient home to be followed up with outpatient urology as per Dr. Busby. 3. Obesity. BMI of 32.3 kilograms per meter squared. Dietary consult ordered. Weight reduction advised. 4. Dyslipidemia with hypertriglyceridemia on fish oil 5. Fluid, electrolytes and nutrition. Carbohydrate controlled diet. 6. Microcytic hypochromic anemia. Etiology unclear. We will obtain an iron panel on this patient. We will monitor the H and H closely. 7. Deep vein thrombosis prophylaxis. Subcutaneous heparin. 8. Gastrointestinal prophylaxis. Proton pump inhibitors. PLAN: Continue IV abx, Blood sugar control lantus pt will need few more days of IV abx and better sugar control wll follow up Subjective 24 Hr Interval Summary Free Text/Dictation doiing ok, Bp stable, afebrile, Exam/Review of Systems Vital Signs Vitals Vital Signs Date Time Temp Pulse Resp B/P Pulse Ox O2 Delivery O2 Flow Rate FiO2 11/11/16 19:43 98.0 76 18 119/74 96 11/10/16 20:00 Room Air Intake and Output 11/10/16 11/10/16 11/11/16 15:00 23:00 07:00 Intake Total 450 ml 1750 ml 1300 ml Balance 450 ml 1750 ml 1300 ml Exam GENERAL: This is an obese male lying in bed in no apparent distress. HEENT: Head normocephalic and atraumatic. Eyes: Anicteric sclerae. Conjunctivae clear. Right eye nonfunctional. NECK: Supple. No JVD noticed. RESPIRATORY: Bilaterally clear to auscultation. No adventitious breath sounds. No use of accessory muscles of respiration. CARDIAC: Regular rate and rhythm. No murmurs. ABDOMEN: Soft, nontender and nondistended. Bowel sounds positive in all 4 quadrants. GENITOURINARY: Uncircumcised penis with phimosis and erythema and edema of the penile tip. Unable to visualize the glans penis because of phimosis. No scrotal swelling. No secretions or discharges from the penis. EXTREMITIES: No cyanosis, no clubbing, no edema. Peripheral pulses palpable. NEUROLOGIC: The patient is awake, alert and oriented. Cranial nerves are grossly intact. Results Result Diagram: 11/11/16 0655 11/11/16 0655 Results 24 hrs Laboratory Tests Test 11/10/16 21:03 11/11/16 03:03 11/11/16 06:55 11/11/16 08:11 Bedside Glucose 221 H 140 130 Anion Gap 17 H Basophils # 0.0 Basophils % 0.4 Blood Urea Nitrogen 9 Calcium Level 8.8 Carbon Dioxide Level 25 Chloride Level 106 Creatinine 0.60 L Eosinophils # 0.2 Eosinophils % 2.3 Glucose Level 119 Hematocrit 43.0 Hemoglobin 13.3 L Lymphocytes # 2.1 Lymphocytes % 28.3 Mean Corpuscular Hemoglobin 21.0 L Mean Corpuscular Hemoglobin Concent 30.9 L Mean Corpuscular Volume 67.8 L Mean Platelet Volume 10.7 H Monocytes # 0.8 Monocytes % 10.2 Neutrophils # 4.3 Neutrophils % 58.3 Nucleated Red Blood Cells # 0.0 Nucleated Red Blood Cells % 0.0 Platelet Count 265 Potassium Level 3.9 Red Blood Count 6.34 H Red Cell Distribution Width 18.7 H Sodium Level 144 White Blood Count 7.4 Test 11/11/16 12:04 11/11/16 17:10 11/11/16 20:16 Bedside Glucose 136 170 147 Medications Medications Current Medications Ondansetron HCl (Zofran Inj) 4 mg Q6H PRN IV NAUSEA AND/OR VOMITING; Start at 20:00 Acetaminophen (Tylenol Tab) 650 mg Q6H PRN PO PAIN LEVEL 1-3 OR FEVER Last administered on 11/11/16t 20:09; Admin Dose 650 MG; Start 11/07/16 at 20:00 Acetaminophen/ Hydrocodone Bitart ([place] (5/325)) 1 tab Q6H PRN PO MODERATE PAIN LEVEL 4-6; Start 11/07/16 at 20:00 Morphine Sulfate (morphine) 2 mg Q4H PRN IV SEVERE PAIN LEVEL 7-10; Start 11/07 at 20:00 Docusate Sodium (Colace) 100 mg Q12H PRN PO CONSTIPATION; Start 11/07/16 at 20: 00 Magnesium Hydroxide (Milk Of Mag) 30 ml DAILY PRN PO CONSTIPATION; Start at 20:00 Sodium Biphosphate/ Sodium Phosphate (Fleet Enema) 133 ml DAILY PRN [place] CONSTIPATION; Start 11/07/16 at 20:00 Pantoprazole (Protonix Tab) 40 mg DAILY@06 PO Last administered on 11/11/16 05 :25; Admin Dose 40 MG; Start 11/08/16 at 06:00 Heparin Sodium (Porcine) (Heparin (5000 Units/0.5 ml)) 5,000 unit Q12 SC Last administered on 11/11/16 20:13; Admin Dose 5,000 UNIT; Start 11/07/16 at 21:00 Lorazepam (Ativan) 0.5 mg Q6H PRN IV ANXIETY; Start 11/07/16 at 20:00 Hydralazine HCl (Apresoline) 10 mg Q6H PRN IV ELEVATED BLOOD PRESSURE; Start at 20:00 Nitroglycerin (Nitroglycerin (Sl Tab) 0.4 Mg) 1 tab Q5M PRN SL ANGINA; Start at 20:00 Insulin Glargine 20 unit 20 unit DAILY@20 SC Last administered on 11/11/16 20: 20; Admin Dose 20 UNIT; Start 11/07/16 at 22:00 Fluconazole/ Sodium Chloride 50 ml @ 50 mls/hr Q24H IVPB Last administered on 08:43; Admin Dose 50 MLS/HR; Start 11/08/16 at 09:00 Ceftriaxone Sodium (Rocephin) 50 ml @ 100 mls/hr Q24H IVPB Last administered on 11/10/16 22:28; Admin Dose 100 MLS/HR; Start 11/07/16 at 21:30 Miscellaneous Information 1 ea NOTE XX ; Start 11/07/16 at 21:30 Glucose (Glutose) 15 gm Q15M PRN PO DECREASED GLUCOSE; Start 11/07/16 at 21:30 Glucose (Glutose) 22.5 gm Q15M PRN PO DECREASED GLUCOSE; Start 11/07/16 at 21: 30 Dextrose (D50w Syringe) 25 ml Q15M PRN IV DECREASED GLUCOSE; Start 11/07/16 at 21:30 Dextrose (D50w Syringe) 50 ml Q15M PRN IV DECREASED GLUCOSE; Start 11/07/16 at 21:30 Glucagon (Glucagen) 1 mg Q15M PRN IM DECREASED GLUCOSE; Start 11/07/16 at 21:30 Glucose 15 gm 15 gm Q15M PRN BUCCAL DECREASED GLUCOSE; Start 11/07/16 at 21:30 Sodium Chloride (NS) 1,000 ml @ 150 mls/hr Q6H40M IV Last administered on 11/11 16:47; Admin Dose 150 MLS/HR; Start 11/08/16 at 02:30 Fish Oil (Fish Oil) 1,000 mg BID PO Last administered on 11/11/16 20:10; Admin Dose 1,000 MG; Start 11/08/16 at 21:00 Cholecalciferol (Vitamin D) 1,000 unit DAILY PO Last administered on 11/11/16 08:43; Admin Dose 1,000 UNIT; Start 11/09/16 at 09:00 THIEN MCCARTNEY MD Nov 11, 2016 20:48
[2016-11-11] MEDS: CEFTRIAXONE 1 GM/50 ML (PMX) 50 ML IVPB SCH (21:43)
[2016-11-12] MEDS: SOD CHLORIDE 0.9% 1,000 ML IV SCH ×3 (00:45→07:31)
[2016-11-12] MEDS: PANTOPRAZOLE (EC) 40 MG TAB PO SCH (05:59)
[2016-11-12 07:56] VITALS: BP 120/71; RESP 18
[2016-11-12] MEDS: INSULIN ASPART [NOVOLOG] 3 ML PEN SC SCH ×2 (08:03→12:15)
[2016-11-12 08:16] LABS: ADD SCAN DIFF NO
[2016-11-12 08:37] LABS: POTASSIUM 4.2 mmol/L (3.5-5.1)
[2016-11-12 08:40] LABS: CALCIUM 9.2 mg/dl (8.4-10.2); CREATININE 0.61 mg/dl (0.61-1.24)
[2016-11-12 08:41] LABS: BASOPHILS % 0.4 % (0.0-2.0); EOSINOPHILS # 0.2 10^3/ul (0.0-0.5); HEMATOCRIT 43.8 % (42.0-52.0); HEMOGLOBIN 13.7 g/dl (14.0-18.0); LYMPHOCYTES # 2.1 10^3/ul (0.8-2.9); LYMPHOCYTES % 28.1 % (15.0-51.0); MEAN CORPUSCULAR HEMOGLOBIN 21.4 pg (29.0-33.0); MEAN CORPUSCULAR HGB CONC 31.3 g/dl (32.0-37.0); MEAN CORPUSCULAR VOLUME 68.5 fl (82.0-101.0); MEAN PLATELET VOLUME 11.1 fl (7.4-10.4); MONOCYTE # 0.7 10^3/ul (0.3-0.9); NEUTROPHIL # 4.5 10^3/ul (1.6-7.5); NEUTROPHILS % 59.8 % (39.0-77.0); PLATELET COUNT 289 10^3/UL (140-415); RED BLOOD COUNT 6.39 10^6/ul (4.70-6.10); RED CELL DISTRIBUTION WIDTH 18.6 % (11.5-14.5); WHITE BLOOD COUNT 7.5 10^3/ul (4.8-10.8)
[2016-11-12] MEDS: FLUCONAZOLE 100 MG/NS (PMX) 50 ML IVPB SCH (09:43)
[2016-11-12] MEDS: CHOLECALCIFEROL 1,000 UNIT TAB PO SCH (09:43)
[2016-11-12] MEDS: FISH OIL 1,000 MG CAP PO SCH (09:43)
[2016-11-12] MEDS: HEPARIN 5,000 UNIT/0.5 ML SYG SC SCH (09:50)
--- NOTE | 2016-11-12 10:08 | PN ---
Date/Time of Note Date/Time of Note DATE: 11/12/16 TIME: 10:07 Assessment/Plan VTE Prophylaxis VTE Prophylaxis Intervention: SCD's Lines/Catheters IV Catheter Type (from Nrs): Peripheral IV Assessment/Plan Assessment/Plan 1. Type 2 diabetes mellitus. New onset. Hemoglobin A1c 12.0. Continue sliding scale insulin along with Lantus insulin. Diabetes education consult ordered. Dietary consult ordered. 2. Scrotal cellulitis/balanitis and underlying phimosis- on IV abx Called the on-call urologist, Dr. Busby on 11/08/2016 at 1:20 p.m. As per the conversation with Dr. Busby, the patient most probably needs a circumcision. However, "this can be done as outpatient." Therefore to treat the patient with antibiotics and to discharge the patient home to be followed up with outpatient urology as per Dr. Busby. 3. Obesity. BMI of 32.3 kilograms per meter squared. Dietary consult ordered. Weight reduction advised. 4. Dyslipidemia with hypertriglyceridemia on fish oil 5. Fluid, electrolytes and nutrition. Carbohydrate controlled diet. 6. Microcytic hypochromic anemia. Etiology unclear. We will obtain an iron panel on this patient. We will monitor the H and H closely. 7. Deep vein thrombosis prophylaxis. Subcutaneous heparin. 8. Gastrointestinal prophylaxis. Proton pump inhibitors. PLAN: Continue IV abx, Blood sugar control lantus possible d/c home today Subjective 24 Hr Interval Summary Free Text/Dictation pt afebrile, BP stable, Blood sugar normal Exam/Review of Systems Vital Signs Vitals Vital Signs Date Time Temp Pulse Resp B/P Pulse Ox O2 Delivery O2 Flow Rate FiO2 11/12/16 07:56 97.9 77 18 120/71 96 11/10/16 20:00 Room Air Intake and Output 11/11/16 11/11/16 11/12/16 15:00 23:00 07:00 Intake Total 350 ml 2810 ml 2280 ml Balance 350 ml 2810 ml 2280 ml Exam GENERAL: This is an obese male lying in bed in no apparent distress. HEENT: Head normocephalic and atraumatic. Eyes: Anicteric sclerae. Conjunctivae clear. Right eye nonfunctional. NECK: Supple. No JVD noticed. RESPIRATORY: Bilaterally clear to auscultation. No adventitious breath sounds. No use of accessory muscles of respiration. CARDIAC: Regular rate and rhythm. No murmurs. ABDOMEN: Soft, nontender and nondistended. Bowel sounds positive in all 4 quadrants. GENITOURINARY: Uncircumcised penis with phimosis and erythema and edema of the penile tip. Unable to visualize the glans penis because of phimosis. No scrotal swelling. No secretions or discharges from the penis. EXTREMITIES: No cyanosis, no clubbing, no edema. Peripheral pulses palpable. NEUROLOGIC: The patient is awake, alert and oriented. Cranial nerves are grossly intact. Results Result Diagram: 11/12/16 0730 11/12/16 0730 Results 24 hrs Laboratory Tests Test 11/11/16 12:04 11/11/16 17:10 11/11/16 20:16 11/12/16 07:30 Bedside Glucose 136 170 147 Anion Gap 15 Basophils # 0.0 Basophils % 0.4 Blood Urea Nitrogen 9 Calcium Level 9.2 Carbon Dioxide Level 26 Chloride Level 106 Creatinine 0.61 Eosinophils # 0.2 Eosinophils % 2.0 Glucose Level 128 Hematocrit 43.8 Hemoglobin 13.7 L Lymphocytes # 2.1 Lymphocytes % 28.1 Mean Corpuscular Hemoglobin 21.4 L Mean Corpuscular Hemoglobin Concent 31.3 L Mean Corpuscular Volume 68.5 L Mean Platelet Volume 11.1 H Monocytes # 0.7 Monocytes % 9.0 Neutrophils # 4.5 Neutrophils % 59.8 Nucleated Red Blood Cells # 0.0 Nucleated Red Blood Cells % 0.0 Platelet Count 289 Potassium Level 4.2 Red Blood Count 6.39 H Red Cell Distribution Width 18.6 H Sodium Level 143 White Blood Count 7.5 Test 11/12/16 07:54 Bedside Glucose 122 Medications Medications Current Medications Ondansetron HCl (Zofran Inj) 4 mg Q6H PRN IV NAUSEA AND/OR VOMITING; Start at 20:00 Acetaminophen (Tylenol Tab) 650 mg Q6H PRN PO PAIN LEVEL 1-3 OR FEVER Last administered on 11/11/16t 20:09; Admin Dose 650 MG; Start 11/07/16 at 20:00 Acetaminophen/ Hydrocodone Bitart ([place] (5/325)) 1 tab Q6H PRN PO MODERATE PAIN LEVEL 4-6; Start 11/07/16 at 20:00 Morphine Sulfate (morphine) 2 mg Q4H PRN IV SEVERE PAIN LEVEL 7-10; Start 11/07 at 20:00 Docusate Sodium (Colace) 100 mg Q12H PRN PO CONSTIPATION; Start 11/07/16 at 20: 00 Magnesium Hydroxide (Milk Of Mag) 30 ml DAILY PRN PO CONSTIPATION; Start at 20:00 Sodium Biphosphate/ Sodium Phosphate (Fleet Enema) 133 ml DAILY PRN [place] CONSTIPATION; Start 11/07/16 at 20:00 Pantoprazole (Protonix Tab) 40 mg DAILY@06 PO Last administered on 11/12/16 05 :59; Admin Dose 40 MG; Start 11/08/16 at 06:00 Heparin Sodium (Porcine) (Heparin (5000 Units/0.5 ml)) 5,000 unit Q12 SC Last administered on 11/12/16 09:50; Admin Dose 5,000 UNIT; Start 11/07/16 at 21:00 Lorazepam (Ativan) 0.5 mg Q6H PRN IV ANXIETY; Start 11/07/16 at 20:00 Hydralazine HCl (Apresoline) 10 mg Q6H PRN IV ELEVATED BLOOD PRESSURE; Start at 20:00 Nitroglycerin (Nitroglycerin (Sl Tab) 0.4 Mg) 1 tab Q5M PRN SL ANGINA; Start at 20:00 Insulin Glargine 20 unit 20 unit DAILY@20 SC Last administered on 11/11/16 20: 20; Admin Dose 20 UNIT; Start 11/07/16 at 22:00 Fluconazole/ Sodium Chloride 50 ml @ 50 mls/hr Q24H IVPB Last administered on 09:43; Admin Dose 50 MLS/HR; Start 11/08/16 at 09:00 Ceftriaxone Sodium (Rocephin) 50 ml @ 100 mls/hr Q24H IVPB Last administered on 11/11/16 21:43; Admin Dose 100 MLS/HR; Start 11/07/16 at 21:30 Miscellaneous Information 1 ea NOTE XX ; Start 11/07/16 at 21:30 Glucose (Glutose) 15 gm Q15M PRN PO DECREASED GLUCOSE; Start 11/07/16 at 21:30 Glucose (Glutose) 22.5 gm Q15M PRN PO DECREASED GLUCOSE; Start 11/07/16 at 21: 30 Dextrose (D50w Syringe) 25 ml Q15M PRN IV DECREASED GLUCOSE; Start 11/07/16 at 21:30 Dextrose (D50w Syringe) 50 ml Q15M PRN IV DECREASED GLUCOSE; Start 11/07/16 at 21:30 Glucagon (Glucagen) 1 mg Q15M PRN IM DECREASED GLUCOSE; Start 11/07/16 at 21:30 Glucose 15 gm 15 gm Q15M PRN BUCCAL DECREASED GLUCOSE; Start 11/07/16 at 21:30 Sodium Chloride (NS) 1,000 ml @ 150 mls/hr Q6H40M IV Last administered on 11/12 07:31; Admin Dose 150 MLS/HR; Start 11/08/16 at 02:30 Fish Oil (Fish Oil) 1,000 mg BID PO Last administered on 11/12/16 09:43; Admin Dose 1,000 MG; Start 11/08/16 at 21:00 Cholecalciferol (Vitamin D) 1,000 unit DAILY PO Last administered on 11/12/16 09:43; Admin Dose 1,000 UNIT; Start 11/09/16 at 09:00 THIEN MCCARTNEY MD Nov 12, 2016 10:08
--- NOTE | 2016-11-12 10:10 | PDOCDIS ---
Discharge Instructions CONDITION Patient Condition: Good HOME CARE INSTRUCTIONS: Special Diet: CARB. CONTROLL DIET ACTIVITY: Activity Restrictions: Slowly Increase Activity Rest between Activity Avoid heavy lifting Avoid Heavy Housework FOLLOW UP/APPOINTMENTS Appointments follow up with his own PMD through HMO insurance in 1-2 week for continuity of care THIEN MCCARTNEY MD Nov 12, 2016 10:09
[2016-11-12] MEDS ORDERED: GLIP5TAB13 PO (10:11)
[2016-11-12] MEDS ORDERED: METF1000 PO (10:11)
[2016-11-12] MEDS ORDERED: LEVO500T10 PO (10:12)
--- NOTE | 2016-11-12 15:59 | DS ---
DATE OF ADMISSION: 11/07/2016 DATE OF DISCHARGE: 11/12/2016 FINAL DISCHARGE DIAGNOSES: 1. Scrotal cellulitis, causing systemic inflammatory response syndrome. 2. Type 2 diabetes mellitus, new onset. 3. Morbid obesity. 4. Dyslipidemia with hypertriglyceridemia. 5. Microcytic hypochromic anemia, possible anemia of chronic disease. CONSULTATIONS DONE DURING THIS HOSPITALIZATION: Diabetes nurse educators consult. HOSPITAL COURSE: This is a 41-year-old male who has no significant past medical history presented w ith a complaint of scrotal pain and infection around his penis. The patient is noted to have scrotal cellulitis, but he is also noted to have a new onset of diabetes mellitus with a hemoglobin A1c of 10.2. Patient gets admitted to the med/surg floor where he was given aggressive IV fluid hydration. He was given IV antibiotic, Zosyn and vancomycin to cover him for a scrotal cellulitis. He remain ed afebrile. The patient was seen by diabetic nurse educator and was started on Lantus with sliding scale. He remained hemodynamically stable. After getting the stable vital signs remained afebrile . BP was stable and he is getting discharged home with a prescription of Levaquin. He is also given a new prescription of glipizide and metformin for his new onset of diabetes mellitus. DISPOSITION: To home. DISCHARGE CONDITION: Stable and improved compared to admission. DISCHARGE ACTIVITIES: As tolerated, slowly resume to the normal baseline activity. DISCHARGE DIET: ADA 1800 kilocalorie diabetic diet. DISCHARGE FOLLOWUP AND INSTRUCTIONS: The patient is to follow up with his own primary care doctor [facility] his HMO insurance 1 to 2 weeks after discharge. He has been explained about the discharge pl an and followup instructions. He understood and verbalized understanding. Dictated By: THIEN MCCARTNEY MD, KP/CHALO Conf#: [id number] DID#: [id number]
== END 2016-11-12 13:10 | disposition home or self-care (01) | DRG 728 ==
LOC: E/R 16:43 → MS2 19:35
PROVIDERS: ADMIT Hospitalist; ATTEND Hospitalist
DX: N49.2 Inflammatory disorders of scrotum (principal); R65.10 Systemic inflammatory response syndrome (SIRS) of non-infectious origin without acute organ dysfunction; E11.9 Type 2 diabetes mellitus without complications; E78.1 Pure hyperglyceridemia; D50.9 Iron deficiency anemia, unspecified; E78.5 Hyperlipidemia, unspecified; N48.1 Balanitis; N47.1 Phimosis; D63.8 Anemia in other chronic diseases classified elsewhere; R35.0 Frequency of micturition; E66.9 Obesity, unspecified; Z68.32 Body mass index [BMI] 32.0-32.9, adult
CPT/HCPCS: 36415; 80048; 80053; 80061; 81001; 81003; 82652; 82728; 82962; 83036; 83540; 83690; 83735; 84100; 84439; 84443; 85025; 86703; 87086; 87591; 96372; J0696; J1450; J1644; J1815; J7030

== ENCOUNTER → 2016-11-30 | Outpatient (CLI) | payer SELFPAY ==
[~2016-11-30] MED LIST: GLIP5TAB13 PO; LEVO500T10 PO; METF1000 PO
== END | disposition home or self-care (01) ==
LOC: DIB 10:39
PROVIDERS: ATTEND Internal Medicine
DX: Z02.9 Encounter for administrative examinations, unspecified (principal)

== ENCOUNTER 2017-12-22 15:01 | Emergency (ER) | END 2017-12-22 15:44 | disposition home or self-care (01) ==

== ENCOUNTER 2019-01-20 18:38 | Inpatient (IN) | payer OTHER ==
[~2019-01-20] VITALS: Ht 177.8 cm; Wt 109.0 kg
[~2019-01-20 18:38] MED LIST changes: +DOXY100T2 PO; +IBUP-1542 PO; -METF1000 PO; +METF100010 PO; +MUPI22OI2 TOP
[2019-01-20] MEDS ORDERED: SODIUM CHLORIDE 0.9% 1L BAG IV* STA (19:30)
[2019-01-20] MEDS ORDERED: morphine 2 MG INJ IV STA (19:30)
[2019-01-20] MEDS ORDERED: ACETAMINOPHEN 325 MG TAB PO STA (19:30)
[2019-01-20] MEDS ORDERED: ONDANSETRON 4 MG INJ IV STA (19:30)
[2019-01-20] MEDS ORDERED: PIPER-TAZO 3.375 GM IV (PMX) 100 ML IVPB ONE (20:00)
[2019-01-20] MEDS ORDERED: SOD CHLORIDE 0.9% 1,000 ML IV ONE (22:30)
[2019-01-20] MEDS ORDERED: LIDOCAINE 2% VISC 15 ML CUP PO ONE (22:30)
[2019-01-20] MEDS ORDERED: morphine 2 MG INJ IV PRN (23:00)
[2019-01-20] MEDS ORDERED: VANCOMYCIN 1 GM (PMX) 250 ML IVPB ONE (23:00)
[2019-01-20] MEDS ORDERED: NACL 0.9% 3 ML SYG IV SCH (23:00)
[2019-01-20] MEDS ORDERED: ONDANSETRON 4 MG INJ IV PRN (23:00)
[2019-01-20] MEDS ORDERED: VANCOMYCIN IV PER PHARMACY XX SCH (23:00)
[2019-01-20] MEDS ORDERED: ACETAMINOPHEN 325 MG TAB PO PRN (23:00)
[2019-01-20] MEDS: SOD CHLORIDE 0.9% 1,000 ML IV SCH (23:24)
--- NOTE | 2019-01-20 23:32 | HP ---
Date/Time of Note Date/Time of Note DATE: 01/20/19 TIME: 23:32 Assessment/Plan VTE Prophylaxis SCD applied (from Nsg): Yes Pharmacological prophylaxis: NA/contraindicated Pharm contraindication: low risk/ambulating Lines/Catheters IV Catheter Type (from Nrsg): Saline Lock Assessment/Plan Hospital Course This is a 43-year-old male being admitted to the [facility] floor for: #1 severe sepsis: Secondary likely to underlying gastrointestinal infection. Broad-spectrum antibiotics of vancomycin and Zosyn initially, will switch to Cipro and Flagyl. Await culture studies including stool cultures/stool studies. Monitor electrolytes #2 small bowel obstruction: Etiology unclear as no previous history of abdominal surgeries. Possibly secondary to underlying infection. NG tube is been insert ed. Will obtain a chest x-ray to evaluate. And put the patient on low wall suction. IV fluid hydration with normal saline. General surgery is Raciel been consulted by the ED doctor francesco. Monitor electrolytes #3 Acute kidney injury: Previous creatinine from 2 years ago was within normal values. Likely secondary to severe sepsis, dehydration and gastrointestinal losses. We will hydrate the patient with normal saline. Monitor kidney function. Avoid nephrotoxic agents. Renally dose antibiotics. #4 metabolic acidosis lactic acidosis: Likely secondary to gastrointestinal losses, will hydrate the patient, treat underlying infection. #5 microcytosis: We will check iron stores, stool occult blood. His hemoglobin at the current time appears stable. No signs of GI bleeding. #6 diabetes mellitus: We will check hemoglobin A 1C, insulin sliding scale, previous hemoglobin A 1C from 2017 was 12.7. #7 DVT GI prophylaxis: SCDs, no GI prophylaxis indicated Further treatment strategy will be implemented as per the clinical course. Result Diagram: 01/20/198 01/20/198 Results 24hrs Laboratory Tests Test 01/20/19 18:58 01/20/19 19:01 01/20/19 19:02 01/20/19 19:05 White Blood Count 10.5 # Red Blood Count 7.55 H Hemoglobin 15.1 Hematocrit 49.4 Mean Corpuscular 65.4 L Volume Mean Corpuscular 20.0 L Hemoglobin Mean Corpuscular 30.6 L Hemoglobin Concen t Red Cell 19.7 H Distribution Width Platelet Count 258 Mean Platelet 9.9 Volume Immature 0.400 Granulocytes % Neutrophils % 71.8 Lymphocytes % 12.8 L Monocytes % 14.6 H Eosinophils % 0.1 Basophils % 0.3 Nucleated Red 0.0 Blood Cells % Immature 0.040 H Granulocytes # Neutrophils # 7.6 H Lymphocytes # 1.4 Monocytes # 1.5 H Eosinophils # 0.0 Basophils # 0.0 Nucleated Red 0.0 Blood Cells # Prothrombin Time 14.2 Prothrombin Time 1.1 Ratio INR International 1.09 Normalized Ratio Activated 31.9 Partial Thrombopl ast Time Sodium Level 136 Potassium Level 4.6 Chloride Level 101 Carbon Dioxide 17 L Level Anion Gap 18 H Blood Urea 36 H Nitrogen Creatinine 1.64 H Est Glomerular 46 L Filtrat Rate mL/min Glucose Level 171 Calcium Level 7.9 L Phosphorus Level 4.2 Magnesium Level 1.3 L Total Bilirubin 0.6 Direct Bilirubin 0.00 Indirect 0.6 Bilirubin Aspartate Amino 46 Transf (AST/SGOT) Alanine 46 Aminotransferase (ALT/SGPT) Alkaline 85 Phosphatase Troponin I < 0.012 Total Protein 7.2 Albumin 4.2 Globulin 3.00 Albumin/Globulin 1.40 Ratio POC Venous 3.3 *H Lactate Blood Gas Blood venous Specimen Source Arterial Blood 01/20/2019 7:23:5 Date Drawn 4 PM Arterial Blood VENOUS LINE Gas Puncture Site Sagar Test N/A Venous Blood pH 7.253 L Venous Blood pCO2 41.2 (Temp Corrected) Venous Blood pO2 29.2 (Temp Corrected) Venous Blood HCO3 17.8 L Venous Blood 49.6 L Oxygen Saturation Venous Blood Base -8.9 L Excess Venous Blood 15.5 Total Hemoglobin Venous Blood 49.1 Oxyhemoglobin Venous Blood 0.5 Methemoglobin Carboxyhemoglobin 0.5 Blood Gas 37.0 Temperature Blood Gas ROOM AIR Modality FiO2 21.0 Blood Gas MG Notified Whom Blood Gas 01/20/2019 7:28:2 Notified Time 6 PM Bedside Glucose 351 H Test 01/20/19 21:00 01/20/19 21:14 01/20/19 22:03 Urine Color ANSELMO Urine Clarity CLOUDY A Urine pH 5.0 Urine Specific 1.018 [place] Urine Ketones NEGATIVE Urine Nitrite NEGATIVE Urine Bilirubin NEGATIVE Urine NEGATIVE Urobilinogen Urine Leukocyte NEGATIVE Esterase Urine Microscopic 2 RBC Urine Microscopic 3 WBC Urine Squamous FEW Epithelial Cells Urine Bacteria FEW A Urine Hyaline MODERATE Casts Urine Mucus MODERATE Urine Hemoglobin NEGATIVE Urine Glucose NEGATIVE Urine Total 2+ H Protein Bedside Urine pH 5.5 (LAB) Bedside Urine 3+ H Protein (LAB) Bedside Urine Negative Glucose (UA) Bedside Urine Trace H Ketones (LAB) Bedside Urine Negative Blood Bedside Urine Negative Nitrite (LAB) Bedside Urine Negative Leukocyte Esteras e (L Lactic Acid Level 3.7 *H HPI/ROS Admit Date/Time Admit Date/Time Hx of Present Illness Plan: Nausea vomiting x3 days This is a 43-year-old male with past medical history diabetes mellitus who presented to the ER with complaints of nausea vomiting and diarrhea x3 days. Patient denies any fevers at home but patient did arrive in the emergency department with a fever of 104.4. states that on Saturday they went together for their anniversary breakfast. They had a breakfast buffet and they did eat different foods. She does state that her ate pork and shrimp. She sta trent that later on that Saturday around 4 PM he started having nausea vomiting and diarrhea and abdominal pain. She was unable to keep food down. He continued to have the symptoms and became lethargic and came to the ER. Patient does not have any previous history of abdominal surgeries. He is not diabetic on oral meds. She does report that her sugars at home are in the 200s. Allergies: NKDA Medications: See CHIQUITA ROS Const: As per HPI Eyes : No pain discharge or redness or change in visual acuity ENT: No pain, sore throat, congestion, congestion, dysphagia or discharge Respiratory: No shortness of breath, cough, sputum, wheezing, or pleuritic pain Cardiovascular: No chest pain, palpitation, PND, or edema GI : As per HPI Genitourinary: No dysuria, hematuria, flank pain , discharge or CVA tenderness Musculoskeletal: No joint pain, back pain, neck pain, restricted range of motion in neck or joints Skin: No rash, bruising or hives Neuro: No headache, dizziness, syncope, seizure, focal weakness Endocrine: No polyuria, polydipsia, temperature intolerance Psych: No hallucination, depression, anxiety or suicidal ideation PMH/Family/Social Past Medical History dm Medications Current Medications Vancomycin HCl 250 ml @ 125 mls/hr ONCE ONCE IVPB Last administered on at 23:24; Admin Dose 125 MLS/HR; Start 01/20/19 at 23:00; Stop 01/21/19 at 00:59 Sodium Chloride 1,000 ml @ 100 mls/hr Q10H IV Last administered on 01/20/19at 23:24; Admin Dose 100 MLS/HR; Start 01/20/19 at 22:48 IV Flush (NS 3 ml) 3 ml PER PROTOCOL IV ; Start 01/20/19 at 23:00 Ondansetron HCl (Zofran Inj) 4 mg Q6H PRN IV NAUSEA/VOMITING; Start 01/20/19 at 23:00 Acetaminophen (Tylenol Tab) 650 mg Q6H PRN PO .PAIN 1-3 OR TEMP; Start 01/20/19 at 23:00 Morphine Sulfate (morphine) 2 mg Q4H PRN IV .PAIN 7-10; Start 01/20/19 at 23:00 Pantoprazole (Protonix Iv) 40 mg DAILY@06 IV ; Start 01/21/19 at 06:00 Vancomycin HCl (Vanco Iv Per Pharmacy) VANCOMYCIN PER PHARMACY PER PROTOCOL XX ; Start 01/20/19 at 23:00; Status UNV Piperacillin Sod/ Tazobactam Sod 100 ml @ 200 mls/hr Q6 IVPB ; Start 01/21/19 at 00:00 Coded Allergies: No Known Allergy (Unverified , 01/21/19) Past Surgical History Past Surgical Hx: no surgical history Family History Significant Family History: no pertinent family hx Social History Alcohol Use: none Smoking Status: Never smoker Drug Use: none Exam/Review of Systems Vital Signs Vitals Vital Signs Date Temp Pulse Resp B/P (MAP) Pulse Ox O2 O2 Flow FiO2 Time Delivery Rate 01/20/19 98.5 142 30 109/70 94 Nasal 2.0 23:00 (83) Cannula Exam Exam General: Patient currently lying in bed, patient does appear lethargic,, HEENT: Atraumatic, normocephalic. The pupils are equal, round and reactive. Extraocular motor are intact, mucous membranes dry, NG tube in place Neck: Supple with full range of motion. No rigidity or meningismus Chest: Nontender Lungs: Clear to auscultation bilaterally no crackles rales or wheezing Heart: Normal S1-S2, Regular rhythm and rate. Abdomen: Soft , less tenderness to palpation, hyperactive bowel sounds, bowel sounds are present. No guarding no rebound tenderness , No masses or organomegaly. No costovertebral temporal angle mass Extremities: Normal to inspection, no edema no cyanosis Neurologic: Normal mental status, speech normal, cranial nerves II through XII are intact, motor and sensory are intact, Additional Comments PROCEDURE: CT abdomen and pelvis without contrast. CLINICAL INDICATION: Abdominal Pain TECHNIQUE: CT scan of the abdomen and pelvis without oral contrast was performed and is reconstructed at 2.5 mm contiguous axial intervals from the dome of the diaphragm to the inferior pubic rami.. The patient was scanned without intravenous contrast. Sagittal and coronal reformatted images were obtained from the axial source images. The calculated radiation dose measures 1665 mGy centimeters. The CTDI measures 22 mGy. Individualized dose optimization technique was used for the performance of this exam. This included 1. Automated exposure control. 2. Adjustment of the mA and / or kV according to the patient's size. 3. Use of iterative reconstructed technique. DICOM images are available. COMPARISON: None. FINDINGS: The lung bases are clear of any infiltrate or nodule. There is minimal atelectasis deep in the costophrenic recesses.. No effusion is seen. Liver is enlarged measuring 24 cm in length. There is fatty infiltration. No mass or ductal dilatation is present. No gallstones are visualized. No splenic, adrenal or pancreatic abnormalities present. Kidneys are of normal size and contour. No hydronephrosis, calculus or solid mass Is seen. There is a 1 cm parenchymal cyst in the upper pole of the right kidney. Ureters are of normal course and caliber with no stone. No bladder mass or stone is present. Prostate and seminal vesicles appear normal. There is no aneurysm. No adenopathy is present. No bowel mass is seen. There is a long segment of moderate to severely distended proximal and mid small bowel. The transition is seen in the anterior right lower quadrant and is not sharply demarcated. There is no associated mass or bowel wall edema. It is unclear if this represents a partial chronic small bowel obstruction or an acute obstruction. The remainder of the small bowel and the colon are decompressed. The appendix is normal. No phlegmon, ascites or pneumoperitoneum is visualized. The osseous structures are intact. IMPRESSION: Mid to distal chronic partial versus acute small bowel obstruction. No mass seen and no associated mural edema. Question band. Consider small-bowel follow- through for more definitive diagnosis. Enlarged fatty liver. No evidence of urolithiasis, obstructive uropathy, diverticulitis or appendicitis. .Russ Aguilar MD, MD Date Time Electronically viewed and signed by .Russ Aguilar MD, MD on 01/20/2019 21:54 .A/ CC: BJ FRIEND MD [id number] TANNER SKELTON January 20, 2019 23:32
[2019-01-21] VITALS (7 sets, daily range): BP systolic 112–119; BP diastolic 65–73; PULSE 99–114; RESP 18; Ht 177.8 cm; Wt 109.0 kg
[2019-01-21] MEDS ORDERED: HYDROmorphONE 2 MG/ML SYG IV ONE
--- NOTE | 2019-01-21 00:23 | ERD ---
ER Documentation Chief Complaint Chief Complaint n/v/d x 3 days HPI The patient is a 43-year-old male, presenting to the ER because of diarrhea for 3 days, fever and abdominal pain for 1 day. He denies hematemesis/hematochezia, cough, neck pain, chest pain, dyspnea. There is no aggravating/relieving factor. He does not smoke nor drink or does illicit drug Accu check was 342 per EMS Medical history: Diabetes mellitus Past surgical history: None ROS All systems reviewed and are negative except as per history of present illness. Medications Home Meds Active Scripts Doxycycline* (Vibramycin*) 100 Mg Tab, 100 MG PO BID for 10 Days, TAB Prov:JAMA MORRIS MD 12/22/17 Mupirocin* (Bactroban*) 2% -22 Gram Oint...g., 1 APPLIC TOP TID for 7 Days, #1 TUB SITE OF APPLICATION: Prov:JAMA MORRIS MD 12/22/17 Ibuprofen* (Motrin*) 600 Mg Tab, 600 MG PO Q6, #20 TAB Prov:JAMA MORRIS MD 12/22/17 Levofloxacin* (Levofloxacin*) 500 Mg Tablet, 500 MG PO DAILY for scrotal cellulitis,balanitis , #10 TAB Prov:THIEN MCCARTNEY MD 11/12/16 Glipizide* (Glipizide*) 5 Mg Tablet, 5 MG PO BID, #120 TAB Prov:THIEN MCCARTNEY MD 11/12/16 Metformin Hcl* (Metformin Hcl*) 1,000 Mg Tablet, 1000 MG PO BID, #120 TAB Prov:THIEN MCCARTNEY MD 11/12/16 Allergies Allergies: Coded Allergies: No Known Allergy (Unverified , 01/21/19) PMhx/Soc History of Surgery: No Anesthesia Reaction: No Hx Neurological Disorder: No Hx Respiratory Disorders: No Hx Cardiac Disorders: No Hx Psychiatric Problems: No Hx Miscellaneous Medical Probl: No Hx Alcohol Use: Yes (quit) Hx Substance Use: Yes (quit for years per patient verbatim) Hx Tobacco Use: Yes (ex-smoker) Smoking Status: Former smoker Physical Exam Vitals Vital Signs Date Temp Pulse Resp B/P (MAP) Pulse Ox O2 O2 Flow FiO2 Time Delivery Rate 01/20/19 98.5 142 30 109/70 94 Nasal 2.0 23:00 (83) Cannula 01/20/19 147 25 120/93 91 Nasal 2.0 22:30 (102) Cannula 01/20/19 141 25 109/61 93 Nasal 2.0 22:00 (77) Cannula 01/20/19 102.6 141 26 104/71 94 Nasal 2.0 21:30 (82) Cannula 01/20/19 135 24 97/72 (80) 98 Nasal 2.0 21:00 Cannula 01/20/19 103.0 79 37 99/69 (79) 94 Nasal 2.0 20:40 Cannula 01/20/19 103.0 20:38 01/20/19 102.4 19:52 01/20/19 Nasal 2 19:27 Cannula 01/20/19 104.4 140 23 110/86 93 18:54 (94) Physical Exam Const: No acute distress. Head: Atraumatic. Eyes: Normal Conjunctiva. ENT: Normal External Ears, Nose and Mouth. Neck: Full range of motion. No meningismus. Resp: Clear to auscultation bilaterally. Cardio: Regular tachycardic Abd: Soft, non distended, normal bowel sounds, moderate and diffuse abdominal tenderness, no rigidity/rebound/CVA tenderness Skin: No petechiae or rashes. Back: No midline or flank tenderness. Ext: No cyanosis, or edema. Neur: Awake and alert. No focal deficit Psych: Normal Mood and Affect. Result Diagram: 01/20/19 1858 01/20/19 1858 Results 24 hrs Laboratory Tests Test 01/20/19 18:58 01/20/19 19:01 01/20/19 19:02 01/20/19 19:05 White Blood 10.5 10^3/ul Count Red Blood Count 7.55 10^6/ul Hemoglobin 15.1 g/dl Hematocrit 49.4 % Mean Corpuscular 65.4 fl Volume Mean Corpuscular 20.0 pg Hemoglobin Mean Corpuscular 30.6 g/dl Hemoglobin Hayley nt Red Cell 19.7 % Distribution Width Platelet Count 258 10^3/UL Mean Platelet 9.9 fl Volume Immature 0.400 % Granulocytes % Neutrophils % 71.8 % Lymphocytes % 12.8 % Monocytes % 14.6 % Eosinophils % 0.1 % Basophils % 0.3 % Nucleated Red 0.0 /100WBC Blood Cells % Immature 0.040 10^3/ul Granulocytes # Neutrophils # 7.6 10^3/ul Lymphocytes # 1.4 10^3/ul Monocytes # 1.5 10^3/ul Eosinophils # 0.0 10^3/ul Basophils # 0.0 10^3/ul Nucleated Red 0.0 10^3/ul Blood Cells # Prothrombin Time 14.2 Sec Prothrombin Time 1.1 Ratio INR 1.09 International Normalized Ratio Activated 31.9 Sec Partial Thrombop last Time Sodium Level 136 mmol/L Potassium Level 4.6 mmol/L Chloride Level 101 mmol/L Carbon Dioxide 17 mmol/L Level Anion Gap 18 Blood Urea 36 mg/dl Nitrogen Creatinine 1.64 mg/dl Est Glomerular 46 mL/min Filtrat Rate mL/min Glucose Level 171 mg/dl Calcium Level 7.9 mg/dl Phosphorus Level 4.2 mg/dl Magnesium Level 1.3 mg/dl Total Bilirubin 0.6 mg/dl Direct Bilirubin 0.00 mg/dl Indirect 0.6 mg/dl Bilirubin Aspartate Amino 46 IU/L Transf (AST/SGOT ) Alanine 46 IU/L Aminotransferase (ALT/SGPT) Alkaline 85 IU/L Phosphatase Troponin I < 0.012 ng/ml Total Protein 7.2 g/dl Albumin 4.2 g/dl Globulin 3.00 g/dl Albumin/Globulin 1.40 Ratio POC Venous 3.3 mmol/L Lactate Blood Gas Blood venous Specimen Source Arterial Blood 01/20/2019 7:23: Date Drawn 54 PM Arterial Blood VENOUS LINE Gas Puncture Site Sagar Test N/A Venous Blood pH 7.253 Venous Blood 41.2 mmHG pCO2 (Temp Corrected) Venous Blood pO2 29.2 mmHG (Temp Corrected) Venous Blood 17.8 mmol/L HCO3 Venous Blood 49.6 mmHG Oxygen Saturation Venous Blood -8.9 mmol/L Base Excess Venous Blood 15.5 g/dl Total Hemoglobin Venous Blood 49.1 % Oxyhemoglobin Venous Blood 0.5 % Methemoglobin Carboxyhemoglobi 0.5 % n Blood Gas 37.0 C Temperature Blood Gas ROOM AIR Modality FiO2 21.0 % Blood Gas MG Notified Whom Blood Gas 01/20/2019 7:28: Notified Time 26 PM Bedside Glucose 351 mg/dL Test 01/20/19 21:00 01/20/19 21:14 01/20/19 22:03 01/20/19 23:27 Urine Color ANSELMO Urine Clarity CLOUDY Urine pH 5.0 Urine Specific 1.018 [place] Urine Ketones NEGATIVE mg/dL Urine Nitrite NEGATIVE mg/dL Urine Bilirubin NEGATIVE mg/dL Urine NEGATIVE mg/dL Urobilinogen Urine Leukocyte NEGATIVE Jazlyn/ul Esterase Urine 2 /HPF Microscopic RBC Urine 3 /HPF Microscopic WBC Urine Squamous FEW /HPF Epithelial Cells Urine Bacteria FEW /HPF Urine Hyaline MODERATE /HPF Casts Urine Mucus MODERATE /HPF Urine Hemoglobin NEGATIVE mg/dL Urine Glucose NEGATIVE mg/dL Urine Total 2+ mg/dl Protein Bedside Urine pH 5.5 (LAB) Bedside Urine 3+ Protein (LAB) Bedside Urine Negative Glucose (UA) Bedside Urine Trace Ketones (LAB) Bedside Urine Negative Blood Bedside Urine Negative Nitrite (LAB) Bedside Urine Negative Leukocyte Estera se (L Lactic Acid 3.7 mmol/L 2.6 mmol/L Level Current Medications Medications Dose Sig/Alycia Start Time Status Last (Trade) Ordered Route PRN Stop Time Admin Dose Reason Admin 650 mg ONCE STAT 01/20/19 DC 01/20/19 Acetaminophen PO 19:30 19:52 (Tylenol 01/20/19 19:34 Tab) Sodium 2,190 ml BOLUS OVER 2 01/20/19 DC 01/20/19 Chloride HOURS STAT 19:30 19:40 (NS) IV* 01/20/19 19:34 Morphine 2 mg ONCE STAT 01/20/19 DC 01/20/19 Sulfate IV 19:30 19:52 (morphine) 01/20/19 19:34 Ondansetron 4 mg ONCE STAT 01/20/19 DC 01/20/19 HCl (Zofran IV 19:30 19:53 Inj) 01/20/19 19:34 Piperacillin 100 ml @ ONCE ONCE 01/20/19 DC 01/20/19 Sod/ 200 mls/hr IVPB 20:00 19:51 Tazobactam 01/20/19 20:29 Sod Sodium 1,000 ml @ Q1H ONCE 01/20/19 DC 01/20/19 Chloride 1,000 mls/hr IV 22:30 22:21 01/20/19 23:29 Lidocaine 15 ml ONCE ONCE 01/20/19 DC 01/20/19 (Xylocaine PO 22:30 22:46 (Viscous)) 01/20/19 22:31 Vancomycin 250 ml @ ONCE ONCE 01/20/19 01/20/19 HCl 125 mls/hr IVPB 23:00 23:24 01/21/19 00:59 Sodium 1,000 ml @ Q10H IV 01/20/19 01/20/19 Chloride 100 mls/hr 22:48 23:24 IV Flush 3 ml PER 01/20/19 (NS 3 ml) PROTOCOL IV 23:00 Ondansetron 4 mg Q6H PRN 01/20/19 01/21/19 HCl (Zofran IV 23:00 00:11 Inj) NAUSEA/VOMITI NG 650 mg Q6H PRN 01/20/19 Acetaminophen PO .PAIN 1-3 23:00 (Tylenol OR TEMP Tab) Morphine 2 mg Q4H PRN 01/20/19 Sulfate IV .PAIN 23:00 (morphine) 7-10 40 mg DAILY@06 01/21/19 Pantoprazole IV 06:00 (Protonix Iv) Vancomycin VANCOMYCIN PER 01/20/19 HCl (Vanco PER PHARMACY PROTOCOL XX 23:00 Iv Per Pharmacy) Piperacillin 100 ml @ Q6 IVPB 01/21/19 Sod/ 200 mls/hr 00:00 Tazobactam Sod Vancomycin 250 ml @ Q12H IVPB 01/21/19 HCl 1.5 83.333 mls/ 09:00 gm/Sodium hr Chloride 1 mg ONCE ONCE 01/21/19 DC 01/21/19 Hydromorphone IV 00:00 00:11 HCl 01/21/19 00:04 (Dilaudid) Procedures/[place] [address] Radiology Main Line: [phone] DIAGNOSTIC IMAGING REPORT Patient: SYMONE PEACOCK : 1975 Age: 43 Sex: M MR #: [id number] DOS: 01/20/191929 Ordering MD: BJ FRIEND MD Location: E/R Room/Bed: PROCEDURE: CT abdomen and pelvis without contrast. CLINICAL INDICATION: Abdominal Pain TECHNIQUE: CT scan of the abdomen and pelvis without oral contrast was performed and is reconstructed at 2.5 mm contiguous axial intervals from the do me of the diaphragm to the inferior pubic rami.. The patient was scanned without intravenous contrast. Sagittal and coronal reformatted images were obtained from the axial source images. The calculated radiation dose measures 1665 mGy centimeters. The CTDI measures 22 mGy. Individualized dose optimization technique was used for the performance of this exam. This included 1. Automated exposure control. 2. Adjustment of the mA and / or kV according to the patient's size. 3. Use of iterative reconstructed technique. DICOM images are available. COMPARISON: None. FINDINGS: The lung bases are clear of any infiltrate or nodule. There is minimal atelectasis deep in the costophrenic recesses.. No effusion is seen. Liver is enlarged measuring 24 cm in length. There is fatty infiltration. No mass or ductal dilatation is present. No gallstones are visualized. No splenic, adrenal or pancreatic abnormalities present. Kidneys are of normal size and contour. No hydronephrosis, calculus or solid mass Is seen. There is a 1 cm parenchymal cyst in the upper pole of the right kidney. Ureters are of normal course and caliber with no stone. No bladder mass or stone is present. Prostate and seminal vesicles appear normal. There is no aneurysm. No adenopathy is present. No bowel mass is seen. There is a long segment of moderate to severely distended proximal and mid small bowel. The transition is seen in the anterior right lower quadrant and is not sharply demarcated. There is no associated mass or bowel wall edema. It is unclear if this represents a partial chronic small bowel obstruction or an acute obstruction. The remainder of the small bowel and the colon are decompressed. The appendix is normal. No phlegmon, ascites or pneumoperitoneum is visualized. The osseous structures are intact. IMPRESSION: Mid to distal chronic partial versus acute small bowel obstruction. No mass seen and no associated mural edema. Question band. Consider small-bowel follow- through for more definitive diagnosis. Enlarged fatty liver. No evidence of urolithiasis, obstructive uropathy, diverticulitis or appendicitis. .Russ Augilar MD, Date Time Electronically viewed and signed by .Russ Aguilar MD, MD on 01/20/2019 21:54 .A/ CC: BJ FRIEND MD [phone] [place] [address] Radiology Main Line: [phone] DIAGNOSTIC IMAGING REPORT Patient: SYMONE PEACOCK : 1975 Age: 43 Sex: M MR #: [id number] DOS: 01/20/19 1855 Ordering MD: BJ FRIEND MD Location: E/R Room/Bed: PROCEDURE: XR Chest. CLINICAL INDICATION: Chest pain TECHNIQUE: Single frontal view of the chest was obtained COMPARISON: None FINDINGS: The heart and mediastinum are within normal limits. The lungs are clear. There is no pleural effusion or pneumothorax. The bones and soft tissue show no acute change. IMPRESSION: No definite abnormalities are identified. RPTAT:AAJJ Haris Velazquez Physician Date Time Electronically viewed and signed by Haris Velazquez Physician on 01/20/2019 19:42 MC/ CC: BJ FRIEND MD [id number] EKG: Read by emergency physician Rate/Rhythm: Sinus tachycardia 141 beats/min QRS, ST, T-waves: No ST elevation, no T inversion,LAE, IRBBB, septal Q's Impression: Abnormal EKG Consultation: I discussed the patient with the on-call general surgeon Dr. Xavier at 10:15 p, was made aware of the lab, the patient treatment and condition, he accepted the patient consult MEDICAL MAKING DECISION: The patient is a 43-year-old male, presenting with acut e severe sepsis, suspected partial SBO, acute kidney injury, acute dehydration, acute hyperglycemia, acute hypomagnesemia. Was treated with antibody with IV fluid, vancomycin IV, Zosyn IV for acute severe sepsis, Tylenol for fever, morphine 2 mg IV and Dilaudid 1 mg IV for pain, Zofran formula IV for nausea, NG tube for acute SBO. Stools studies has been submitted. The differential diagnoses considered include but are not limited to infectious diarrhea, colitis, enteritis, cholelithiasis, cholecystitis, choledocholithiasis, cholangitis, pancreatitis, hepatitis, gastritis, peptic ulcer disease, gastric ulcer, appendicitis, cystitis, diverticulitis, partial small bowel obstruction, perforated viscus. MDM: Patient's infectious symptoms have not stabilized and the patient is at risk of rapid decompensation. The patient will be admitted for careful hydration, antibiotic therapy, and infectious source control. SEVERE SEPSIS CRITERIA: Infectious source: unknown End organ damage indicated by: [Lactate > 2.0 mmol/L SEPSIS MANAGEMENT Time of recognition of severe sepsis:8p 3 HOUR BUNDLE Blood cultures x 2 before broad-spectrum antibiotics: [Yes] 30 ml/kg NS bolus [Completed] Initial lactate []3.3 Repeat lactate Pending SEPTIC SHOCK ASSESSMENT: [No] lactic acid > 4.0 [No] Persistent hypotension (SBP < 90 or 40 mmHg drop, MAP < 65) despite 30 mL/kg IV fluid bolus CRITICAL CARE Critical care time [35] minutes Emergent fluid management while maintaining close respiratory support. Provision of immediate and broad-spectrum antibiotic therapy. Simultaneous assessment for possible sources in order to direct targeted therapy. Consideration for invasive and chemical support to prevent cardiopulmonary collapse. Critical care time is independent of procedures performed. Departure Diagnosis: Primary Impression: Severe sepsis Additional Impressions: Partial small bowel obstruction NOEMI (acute kidney injury) Dehydration Hypomagnesemia Condition: Serious Comments I discussed the patient with the [facility] physician Dr Elliott at 10:40 pm, who authorized the admission to panel I discussed the findings with the patient. I discussed the patient with Dr Angel at 1045p , who was made aware of the lab, the treatment, the patient condition. The patient is admitted to Tel Disclaimer: Inadvertent spelling and grammatical errors are likely due to EHR/dictation software use and do not reflect on the overall quality of patient care. Also, please note that the electronic time recorded on this note does not necessarily reflect the actual time of the patient encounter. BJ FRIEND MD January 21, 2019 00:23
[2019-01-21] MEDS: PIPER-TAZO 3.375 GM IV (PMX) 100 ML IVPB SCH ×2 (01:25→06:31)
[2019-01-21] MEDS ORDERED: MAGNESIUM SULFATE 2 GM/50 ML 50 ML IVPB ONE (02:00)
[2019-01-21] MEDS ORDERED: SOD CHLORIDE 0.9% 500 ML IV ONE (02:00)
[2019-01-21] MEDS: PANTOPRAZOLE 40 MG INJ IV SCH (06:31)
[2019-01-21] MEDS: SOD CHLORIDE 0.9% 1,000 ML IV SCH ×2 (08:48→17:30)
[2019-01-21] MEDS: CIPROFLOXACIN 400MG/D5W 200 ML IVPB SCH ×2 (09:15→20:12)
[2019-01-21] MEDS ORDERED: GLUCOSE GEL 15 GRAM TUBE PO PRN ×2 (10:00)
[2019-01-21] MEDS ORDERED: GLUCAGON 1 MG INJ IM PRN (10:00)
[2019-01-21] MEDS ORDERED: GLUCOSE GEL 15 GRAM TUBE BUCCAL PRN (10:00)
[2019-01-21] MEDS ORDERED: DEXTROSE 50% 50 ML SYRINGE IV PRN ×2 (10:00)
[2019-01-21] MEDS: metroNIDAZOLE 500 MG/NS (PMX) 100 ML IVPB SCH ×3 (10:33→17:24)
[2019-01-21] MEDS: VANCOMYCIN HCL 1.5 GM in SOD CHLORIDE 0.9% 250 ML IVPB SCH ×2 (11:59→23:37)
--- NOTE | 2019-01-21 12:32 | QN ---
Documentation Comment 43-year-old obese male with no previous history of abdominal surgery, with a history of dm2, here with sudden onset of multiple episodes of nonbilious/nonbloody vomiting, rashad cramps, multiple episodes of diarrhea started Saturday morning. Patient is noted with small bowel obstruction. Apparently, patient's family including his 2 children where sick with a stomach flu couple days ago. Patient currently with not much output from NG tube although it drained a lot this morning after insertion. He is with no abdominal pain. At this time, surgical consultation is pending. To new NG tube decompression and go ahead with a small bowel x-ray for follow-up. Will consider clamping NG tube depending x-ray find ings. Follow-up stool studies. Patient was seen in collaboration with Dr. Romeo. FRANKLIN ESPITIA NP January 21, 2019 12:32
[2019-01-21] MEDS: INSULIN ASPART [NOVOLOG] 3 ML PEN SC SCH ×3 (13:00→20:30)
--- NOTE | 2019-01-21 13:09 | CONS ---
Assessment/Plan Assessment/Plan Hospital Course (Demo Recall) Patient was admitted through emergency room complaining of diarrhea and vomiting started suddenly after eating out. CT scan showed signs of bowel obstruction based on the dilated bowel. White count was 10,000. The white count went up to 13,000 today. However patient does not complain of any abdominal pain. NG tube drains gastric content. Patient continues with diarrhea. Assessment/Plan (Daily) Nausea vomiting and diarrhea after eating out in diabetic patient. Symptoms consistent with the gastroenteritis of infectious etiology. I do not see any acute surgical problem. We will follow is needed. Consultation Date/Type/Reason Admit Date/Time Date of Consultation: January 21, 2019 Type of Consult Surgical Date/Time of Note DATE: 01/21/19 TIME: 13:05 Hx of Present Illness 43-year-old diabetic male after eating breakfast out on Saturday 6 hours later developed profuse diarrhea and vomiting. The symptoms got worse over the next 24 hours and she came to emergency room. Patient denied abdominal pain. Patient did not have any surgical procedures before. Constitutional: no complaints, improved Eyes: no complaints ENT: no complaints Respiratory: no complaints Cardiovascular: no complaints Gastrointestinal: diarrhea, vomiting Genitourinary: no complaints Musculoskeletal: no complaints Skin: no complaints Neurologic: no complaints Endocrine: no complaints, other (Diabetes) Lymphatic: no complaints Psychological: no complaints, nl mood/affect Immunologic: no complaints Past Medical History Medical History: diabetes Home Meds Active Scripts Ibuprofen* (Motrin*) 600 Mg Tab, 600 MG PO Q6, #20 TAB Prov:JAMA MORRIS MD 12/22/17 Glipizide* (Glipizide*) 5 Mg Tablet, 5 MG PO BID, #120 TAB Prov:THIEN MCCARTNEY MD 11/12/16 Metformin Hcl* (Metformin Hcl*) 1,000 Mg Tablet, 1000 MG PO BID, #120 TAB Prov:THIEN MCCARTNEY MD 11/12/16 Discontinued Scripts Doxycycline* (Vibramycin*) 100 Mg Tab, 100 MG PO BID for 10 Days, TAB Prov:JAMA MORRIS MD 12/22/17 Mupirocin* (Bactroban*) 2% -22 Gram Oint...g., 1 APPLIC TOP TID for 7 Days, #1 TUB SITE OF APPLICATION: Prov:JAMA MORRIS MD 12/22/17 Levofloxacin* (Levofloxacin*) 500 Mg Tablet, 500 MG PO DAILY for scrotal cellulitis,balanitis , #10 TAB Prov:THIEN MCCARTNEY MD 11/12/16 Medications Current Medications Sodium Chloride 1,000 ml @ 100 mls/hr Q10H IV Last administered on 01/21/19at 08:48; Admin Dose 100 MLS/HR; Start 01/20/19 at 22:48 IV Flush (NS 3 ml) 3 ml PER PROTOCOL IV ; Start 01/20/19 at 23:00 Ondansetron HCl (Zofran Inj) 4 mg Q6H PRN IV NAUSEA/VOMITING Last administered on 01/21/19at 00:11; Admin Dose 4 MG; Start 01/20/19 at 23:00 Acetaminophen (Tylenol Tab) 650 mg Q6H PRN PO .PAIN 1-3 OR TEMP; Start 01/20/19 at 23:00 Morphine Sulfate (morphine) 2 mg Q4H PRN IV .PAIN 7-10; Start 01/20/19 at 23:00 Pantoprazole (Protonix Iv) 40 mg DAILY@06 IV Last administered on 01/21/19at 06:31; Admin Dose 40 MG; Start 01/21/19 at 06:00 Vancomycin HCl (Vanco Iv Per Pharmacy) VANCOMYCIN PER PHARMACY PER PROTOCOL XX ; Start 01/20/19 at 23:00 Vancomycin HCl 1.5 gm/Sodium Chloride 250 ml @ 83.333 mls/ hr Q12H IVPB Last administered on 01/21/19at 11:59; Admin Dose 83.333 MLS/HR; Start 01/21/19 at 09:00 Ciprofloxacin/ Dextrose 200 ml @ 200 mls/hr Q12 IVPB Last administered on 01/21/19at 09:15; Admin Dose 200 MLS/HR; Start 01/21/19 at 09:00 Metronidazole 100 ml @ 100 mls/hr Q6 IVPB Last administered on 01/21/19at 10:33; Admin Dose 100 MLS/HR; Start 01/21/19 at 09:00 Diagnostic Test (Pha) (Accu-Chek) 1 XX ; Start 01/22/19 at 02:00 Insulin Aspart (Novolog Insulin Pen) NOVOLOG *MILD* ALGORI... Q4 SC ; Start 01/21/19 at 13:00 Miscellaneous Information 1 ea NOTE XX ; Start 01/21/19 at 10:00 Glucose (Glutose) 15 gm Q15M PRN PO DECREASED GLUCOSE; Start 01/21/19 at 10:00 Glucose (Glutose) 22.5 gm Q15M PRN PO DECREASED GLUCOSE; Start 01/21/19 at 10:00 Dextrose (D50w Syringe) 25 ml Q15M PRN IV DECREASED GLUCOSE; Start 01/21/19 at 10:00 Dextrose (D50w Syringe) 50 ml Q15M PRN IV DECREASED GLUCOSE; Start 01/21/19 at 10:00 Glucagon (Glucagen) 1 mg Q15M PRN IM DECREASED GLUCOSE; Start 01/21/19 at 10:00 Glucose (Glutose) 15 gm Q15M PRN BUCCAL DECREASED GLUCOSE; Start 01/21/19 at 10:00 Allergies: Coded Allergies: No Known Allergy (Unverified , 01/21/19) Past Surgical History Past Surgical Hx: no surgical history Social History Alcohol Use: none Smoking Status: Never smoker Drug Use: none Exam/Review of Systems Exam Vitals Vital Signs Date Temp Pulse Resp B/P (MAP) Pulse Ox O2 O2 Flow FiO2 Time Delivery Rate 01/21/19 2.0 12:00 01/21/19 98.9 104 112/65 94 Nasal 11:28 (81) Cannula 01/21/19 18 10:31 Intake and Output 01/20/19 01/20/19 01/21/19 1515:00 23:00 07:00 IntakeIntake Total 2290 ml 650 ml OutputOutput Total 600 ml BalanceBalance 2290 ml 50 ml Constitutional: alert, oriented, well developed Psych: no complaints, nl mood/affect Head: normocephalic, atraumatic Eyes: nl conjunctiva, EOMI, nl lids, nl sclera, PERRL ENMT: nl external ears & nose, nl lips & teeth, nl nasal mucosa & septum Neck: supple, non-tender Respiratory: clear to auscultation, normal air movement Cardiovascular: regular rate and rhythm, nl pulses Gastrointestinal: soft, nl liver, spleen, non-tender, other (Abdomen is not distended) Musculoskeletal: nl extremities to inspection, nl gait and stance Extremities: normal pulses Neurological: STONE CARVER II-XII intact, nl mental status, nl speech, nl strength Skin: nl turgor; No rash or lesions Lymph: nl lymph nodes Results Result Diagram: 01/21/19 0526 01/21/19 0526 Results 24hrs Laboratory Tests Test 01/20/19 18:58 01/20/19 19:01 01/20/19 19:02 01/20/19 19:05 White Blood Count 10.5 # Red Blood Count 7.55 H Hemoglobin 15.1 Hematocrit 49.4 Mean Corpuscular 65.4 L Volume Mean Corpuscular 20.0 L Hemoglobin Mean Corpuscular 30.6 L Hemoglobin Concen t Red Cell 19.7 H Distribution Width Platelet Count 258 Mean Platelet 9.9 Volume Immature 0.400 Granulocytes % Neutrophils % 71.8 Lymphocytes % 12.8 L Monocytes % 14.6 H Eosinophils % 0.1 Basophils % 0.3 Nucleated Red 0.0 Blood Cells % Immature 0.040 H Granulocytes # Neutrophils # 7.6 H Lymphocytes # 1.4 Monocytes # 1.5 H Eosinophils # 0.0 Basophils # 0.0 Nucleated Red 0.0 Blood Cells # Prothrombin Time 14.2 Prothrombin Time 1.1 Ratio INR International 1.09 Normalized Ratio Activated 31.9 Partial Thrombopl ast Time Sodium Level 136 Potassium Level 4.6 Chloride Level 101 Carbon Dioxide 17 L Level Anion Gap 18 H Blood Urea 36 H Nitrogen Creatinine 1.64 H Est Glomerular 46 L Filtrat Rate mL/min Glucose Level 171 Calcium Level 7.9 L Phosphorus Level 4.2 Magnesium Level 1.3 L Total Bilirubin 0.6 Direct Bilirubin 0.00 Indirect 0.6 Bilirubin Aspartate Amino 46 Transf (AST/SGOT) Alanine 46 Aminotransferase (ALT/SGPT) Alkaline 85 Phosphatase Troponin I < 0.012 Total Protein 7.2 Albumin 4.2 Globulin 3.00 Albumin/Globulin 1.40 Ratio POC Venous 3.3 *H Lactate Blood Gas Blood venous Specimen Source Arterial Blood 01/20/2019 7:23:5 Date Drawn 4 PM Arterial Blood VENOUS LINE Gas Puncture Site Sagar Test N/A Venous Blood pH 7.253 L Venous Blood pCO2 41.2 (Temp Corrected) Venous Blood pO2 29.2 (Temp Corrected) Venous Blood HCO3 17.8 L Venous Blood 49.6 L Oxygen Saturation Venous Blood Base -8.9 L Excess Venous Blood 15.5 Total Hemoglobin Venous Blood 49.1 Oxyhemoglobin Venous Blood 0.5 Methemoglobin Carboxyhemoglobin 0.5 Blood Gas 37.0 Temperature Blood Gas ROOM AIR Modality FiO2 21.0 Blood Gas MG Notified Whom Blood Gas 01/20/2019 7:28:2 Notified Time 6 PM Bedside Glucose 351 H Test 01/20/19 21:00 01/20/19 21:14 01/20/19 22:03 01/20/19 23:27 Urine Color ANSELMO Urine Clarity CLOUDY A Urine pH 5.0 Urine Specific 1.018 [place] Urine Ketones NEGATIVE Urine Nitrite NEGATIVE Urine Bilirubin NEGATIVE Urine NEGATIVE Urobilinogen Urine Leukocyte NEGATIVE Esterase Urine Microscopic 2 RBC Urine Microscopic 3 WBC Urine Squamous FEW Epithelial Cells Urine Bacteria FEW A Urine Hyaline MODERATE Casts Urine Mucus MODERATE Urine Hemoglobin NEGATIVE Urine Glucose NEGATIVE Urine Total 2+ H Protein Bedside Urine pH 5.5 (LAB) Bedside Urine 3+ H Protein (LAB) Bedside Urine Negative Glucose (UA) Bedside Urine Trace H Ketones (LAB) Bedside Urine Negative Blood Bedside Urine Negative Nitrite (LAB) Bedside Urine Negative Leukocyte Esteras e (L Lactic Acid Level 3.7 *H 2.6 *H Test 01/21/19 05:26 01/21/19 10:40 01/21/19 12:42 White Blood Count 13.3 #H Red Blood Count 6.86 H Hemoglobin 13.8 L Hematocrit 45.0 Mean Corpuscular 65.6 L Volume Mean Corpuscular 20.1 L Hemoglobin Mean Corpuscular 30.7 L Hemoglobin Concen t Red Cell 19.9 H Distribution Width Platelet Count 247 Mean Platelet 10.2 Volume Immature 0.500 H Granulocytes % Neutrophils % 76.7 Segmented 15 L Neutrophils % (Manual) Band Neutrophils 51 H % (Manual) Lymphocytes % 12.1 L Lymphocytes % 15 (Manual) Reactive 1 H Lymphocytes % (Manual) Monocytes % 10.5 Monocytes % 10 (Manual) Eosinophils % 0.0 Basophils % 0.2 Metamyelocytes % 6 H (manual) Myelocytes % 2 H (Manual) Nucleated Red 0.0 Blood Cells % Immature 0.070 H Granulocytes # Neutrophils # 10.2 H Neutrophils # 2.9 (Manual) Band Neutrophils 6.7 H # Lymphocytes 1.9 (Manual) Lymphocytes # 1.6 Reactive 0.1 H Lymphocytes # Monocytes # 1.4 H Monocytes # 1.3 H (Manual) Eosinophils # 0.0 Basophils # 0.0 Metamyelocytes # 0.7 H Myelocytes # 0.2 H Nucleated Red 0.0 Blood Cells # Platelet Estimate NORMAL Giant Platelets 4 H Poikilocytosis 2+ Anisocytosis 2+ Microcytosis 2+ Ovalocytes 1+ Sodium Level 136 Potassium Level 3.9 Chloride Level 110 Carbon Dioxide 16 L Level Anion Gap 10 # Blood Urea 41 H Nitrogen Creatinine 1.53 H Est Glomerular 50 L Filtrat Rate mL/min Glucose Level 168 Hemoglobin A1c 8.3 H Lactic Acid Level 1.8 Calcium Level 7.1 L Magnesium Level 2.2 Iron Level < 10 L Total Iron 269 Binding Capacity Percent Iron Saturation Ferritin 231.0 Total Bilirubin 0.5 Direct Bilirubin 0.00 Indirect 0.5 Bilirubin Aspartate Amino 113 #H Transf (AST/SGOT) Alanine 99 H Aminotransferase (ALT/SGPT) Alkaline 57 Phosphatase Total Protein 5.7 #L Albumin 3.1 #L Globulin 2.60 Albumin/Globulin 1.19 Ratio Triglycerides 115 Level Cholesterol Level 89 L LDL Cholesterol, 45 Calculated HDL Cholesterol 21 L Cholesterol/HDL 4.2 Ratio Thyroid 0.515 Stimulating Hormone (TSH) Bedside Glucose 170 168 Medications Medication Current Medications Sodium Chloride 1,000 ml @ 100 mls/hr Q10H IV Last administered on 01/21/19at 08:48; Admin Dose 100 MLS/HR; Start 01/20/19 at 22:48 IV Flush (NS 3 ml) 3 ml PER PROTOCOL IV ; Start 01/20/19 at 23:00 Ondansetron HCl (Zofran Inj) 4 mg Q6H PRN IV NAUSEA/VOMITING Last administered on 01/21/19at 00:11; Admin Dose 4 MG; Start 01/20/19 at 23:00 Acetaminophen (Tylenol Tab) 650 mg Q6H PRN PO .PAIN 1-3 OR TEMP; Start 01/20/19 at 23:00 Morphine Sulfate (morphine) 2 mg Q4H PRN IV .PAIN 7-10; Start 01/20/19 at 23:00 Pantoprazole (Protonix Iv) 40 mg DAILY@06 IV Last administered on 01/21/19at 06:31; Admin Dose 40 MG; Start 01/21/19 at 06:00 Vancomycin HCl (Vanco Iv Per Pharmacy) VANCOMYCIN PER PHARMACY PER PROTOCOL XX ; Start 01/20/19 at 23:00 Vancomycin HCl 1.5 gm/Sodium Chloride 250 ml @ 83.333 mls/ hr Q12H IVPB Last administered on 01/21/19at 11:59; Admin Dose 83.333 MLS/HR; Start 01/21/19 at 09:00 Ciprofloxacin/ Dextrose 200 ml @ 200 mls/hr Q12 IVPB Last administered on 01/21/19at 09:15; Admin Dose 200 MLS/HR; Start 01/21/19 at 09:00 Metronidazole 100 ml @ 100 mls/hr Q6 IVPB Last administered on 01/21/19at 10:33; Admin Dose 100 MLS/HR; Start 01/21/19 at 09:00 Diagnostic Test (Pha) (Accu-Chek) 1 ea 02 XX ; Start 01/22/19 at 02:00 Insulin Aspart (Novolog Insulin Pen) NOVOLOG *MILD* ALGORI... Q4 SC ; Start 01/21/19 at 13:00 Miscellaneous Information 1 ea NOTE XX ; Start 01/21/19 at 10:00 Glucose (Glutose) 15 gm Q15M PRN PO DECREASED GLUCOSE; Start 01/21/19 at 10:00 Glucose (Glutose) 22.5 gm Q15M PRN PO DECREASED GLUCOSE; Start 01/21/19 at 10:00 Dextrose (D50w Syringe) 25 ml Q15M PRN IV DECREASED GLUCOSE; Start 01/21/19 at 10:00 Dextrose (D50w Syringe) 50 ml Q15M PRN IV DECREASED GLUCOSE; Start 01/21/19 at 10:00 Glucagon (Glucagen) 1 mg Q15M PRN IM DECREASED GLUCOSE; Start 01/21/19 at 10:00 Glucose (Glutose) 15 gm Q15M PRN BUCCAL DECREASED GLUCOSE; Start 01/21/19 at 10:00 EVAN LINARES MD January 21, 2019 13:09
[2019-01-22] VITALS (8 sets, daily range): BP systolic 115–123; BP diastolic 70–80; PULSE 88–104; RESP 18–22
[2019-01-22] MEDS: INSULIN ASPART [NOVOLOG] 3 ML PEN SC SCH ×5 (00:33→17:18)
[2019-01-22] MEDS: metroNIDAZOLE 500 MG/NS (PMX) 100 ML IVPB SCH ×3 (00:42→13:48)
[2019-01-22] MEDS ORDERED: ACCU-CHEK XX SCH (02:00)
[2019-01-22] MEDS: PHENOL 1.4% SOLN 180 ML BTL MT PRN ×2 (02:41→02:54)
[2019-01-22] MEDS: SOD CHLORIDE 0.9% 1,000 ML IV SCH ×2 (02:55→13:51)
[2019-01-22] MEDS: PANTOPRAZOLE 40 MG INJ IV SCH (06:19)
[2019-01-22] MEDS: CIPROFLOXACIN 400MG/D5W 200 ML IVPB SCH (08:47)
[2019-01-22] MEDS ORDERED: IOHEXOL 300MG/ML 150 ML BTL ONE (11:21)
--- NOTE | 2019-01-22 11:26 | DS ---
Date/Time of Note Date/Time of Note DATE: 01/22/19 TIME: 11:24 Discharge Summary Admission/Discharge Info Admit Date/Time January 20, 2019 at 22:45 Discharge Date/Time Discharge Diagnosis Resolving Small bowel obstruction Gastroenteritis Positive stool OB, rule out GI bleed/Gastritis.Recommend EGD/Colonoscopy DM2 Obesity Patient Condition: Stable Consults ,Surgery Procedures 01/20/2019: CT abdomen and pelvis IMPRESSION: Mid to distal chronic partial versus acute small bowel obstruction. No mass seen and no associated mural edema. Question band. Consider small-bowel follow- through for more definitive diagnosis. Enlarged fatty liver. No evidence of urolithiasis, obstructive uropathy, diverticulitis or appendicitis. Hospital Course 43-year-old obese male with no previous history of abdominal surgery, with a history of dm2, here with sudden onset of multiple episodes of nonbilious/n onbloody vomiting, rashad cramps, multiple episodes of diarrhea started Saturday morning. Patient is noted with small bowel obstruction. Apparently, patient's family including his 2 children where sick with a stomach flu couple days ago. Patient did improve with bowel rest, NG tube decompression and cipro/flagyl. Patient was also noted with a positive stool occult blood. Hemoglobin remained stable. Patient does take high-dose ibuprofen 600 mg at home for pain. Patient was being followed by surgery. SMFT shows resolution of SBO.Patient's pain resolved. NGT got pulled out. Patient is also Tran insurance and he is stable from me dical standpoint and surgical standpoint to be transferred for continuity of care. Recommended EGD/colonoscopy and surgical follow-up on transfer. Patient was continued on insulin for underlying diabetes. Approximately 60 m spent on coordinating the discharge on this patient. Patient was seen in collaboration with Dr. Romeo. Home Meds Active Scripts Pantoprazole* (Protonix*) 40 Mg Tablet., 40 MG IV BID for 30 Days, TAB Prov:ESPITIA,FRANKLIN V. HIGH RIGGER 01/22/19 Metronidazole* (Metronidazole*) 500 Mg Tablet, 500 MG IV* Q8 for 7 Days, TAB Prov:ESPITIA,FRANKLIN V. HIGH RIGGER 5/30/19 Ciprofloxacin Hcl* (Ciprofloxacin Hcl*) 500 Mg Tablet, 500 MG IV BID, #14 TAB Prov:FRANKLIN ESPITIA NP 01/22/19 Glipizide* (Glipizide*) 5 Mg Tablet, 5 MG PO BID, #120 TAB Prov:THIEN MCCARTNEY MD 11/12/16 Metformin Hcl* (Metformin Hcl*) 1,000 Mg Tablet, 1000 MG PO BID, #120 TAB Prov:THIEN MCCARTNEY MD 11/12/16 Discontinued Scripts Ibuprofen* (Motrin*) 600 Mg Tab, 600 MG PO Q6, #20 TAB Prov:JAMA MORRIS MD 12/22/17 Doxycycline* (Vibramycin*) 100 Mg Tab, 100 MG PO BID for 10 Days, TAB Prov:JAMA MORRIS MD 12/22/17 Mupirocin* (Bactroban*) 2% -22 Gram Oint...g., 1 APPLIC TOP TID for 7 Days, #1 TUB SITE OF APPLICATION: Prov:JAMA MORRIS MD 12/22/17 Levofloxacin* (Levofloxacin*) 500 Mg Tablet, 500 MG PO DAILY for scrotal cellulitis,balanitis , #10 TAB Prov:THIEN MCCARTNEY MD 11/12/16 Primary Care Provider Not On Staff Doctor Pending Labs Laboratory Tests Test 01/21/19 12:42 01/21/19 16:30 01/21/19 17:30 01/21/19 20:29 Bedside 168 112 117 Glucose mg/dL (70-220) mg/dL (70-220) mg/dL (70-220) Stool Occult POSITIVE (NEGA Blood TIVE) Test 01/22/19 00:33 01/22/19 05:20 01/22/19 05:52 01/22/19 08:11 Bedside 116 130 166 Glucose mg/dL (70-220) mg/dL (70-220) mg/dL (70-220) White Blood 10.0 Count 10^3/ul (4.8-1 0.8) Red Blood 6.06 Count 10^6/ul (4.70- 6.10) Hemoglobin 12.3 g/dl (14.0-18. 0) Hematocrit 38.8 % (42.0-52.0) Mean 64.0 Corpuscular fl (82.0-101.0 Volume ) Mean 20.3 Corpuscular pg (29.0-33.0) Hemoglobin Mean 31.7 Corpuscular g/dl (32.0-37. Hemoglobin Conc 0) ent Red Cell 19.8 Distribution % (11.5-14.5) Width Platelet Count 220 10^3/UL (140-4 15) Mean Platelet 10.4 Volume fl (7.4-10.4) Immature 0.500 Granulocytes % % (0.001-0.429 ) Neutrophils % 76.1 % (39.0-77.0) Segmented 66 % (39-77) Neutrophils % (Manual) Band 8 % (0-4) Neutrophils % (Manual) Lymphocytes % 13.2 % (15.0-51.0) Lymphocytes % 21 % (15-51) (Manual) Monocytes % 9.7 % (0.0-11.0) Monocytes % 1 % (0-11) (Manual) Eosinophils % 0.3 % (0.0-7.0) Eosinophils % 4 % (0-7) (Manual) Basophils % 0.2 % (0.0-2.0) Nucleated Red 0.0 Blood Cells % /100WBC (0.0-0 .0) Immature 0.050 Granulocytes # 10^3/ul (0.0-0 .031) Neutrophils # 7.6 10^3/ul (1.6-7 .5) Neutrophils # 6.7 (Manual) 10^3/ul (1.6-7 .5) Band 0.8 Neutrophils # 10^3/ul (0.0-0 .6) Lymphocytes 2.1 (Manual) 10^3/ul (0.8-2 .9) Lymphocytes # 1.3 10^3/ul (0.8-2 .9) Monocytes # 1.0 10^3/ul (0.3-0 .9) Monocytes # 0.1 (Manual) 10^3/ul (0.3-0 .9) Eosinophils # 0.0 10^3/ul (0.0-0 .5) Basophils # 0.0 10^3/ul (0.0-0 .1) Nucleated Red 0.0 Blood Cells # 10^3/ul (0.0-0 .0) Platelet NORMAL Estimate Polychromasia 3+ (0-0) Anisocytosis 1+ (0-0) Microcytosis 1+ (0-0) Sodium Level 141 mmol/L (135-14 4) Potassium 3.8 Level mmol/L (3.5-5. 1) Chloride Level 109 mmol/L (97-110 ) Carbon Dioxide 23 Level mmol/L (21-31) Anion Gap 9 (5-13) Blood Urea 18 Nitrogen mg/dl (7-20) Creatinine 0.72 mg/dl (0.61-1. 24) Est Glomerular > 60 Filtrat mL/min (>60) Rate mL/min Glucose Level 142 mg/dl (70-220) Calcium Level 8.3 mg/dl (8.4-10. 2) Magnesium 2.4 Level mg/dl (1.7-2.5 ) Total 0.4 Bilirubin mg/dl (0.2-1.3 ) Direct 0.00 Bilirubin mg/dl (0.00-0. 20) Indirect 0.4 Bilirubin mg/dl (0-1.1) Aspartate Amino 50 Transf (AST/SGO IU/L (15-46) T) Alanine 88 Aminotransferas IU/L (13-69) e (ALT/SGPT) Alkaline 82 Phosphatase IU/L (42-121) Total Protein 6.0 g/dl (6.1-8.1) Albumin 3.1 g/dl (3.3-4.9) Globulin 2.90 g/dl (1.3-3.2) Albumin/Globuli 1.06 n Ratio FRANKLIN ESPITIA V. HIGH RIGGER January 22, 2019 11:26
--- NOTE | 2019-01-22 11:50 | PDOCDIS ---
Discharge Instructions DIAGNOSIS Discharge Diagnosis Small bowel obstruction Gastroenteritis Positive stool OB, rule out GI bleed DM2 Obesity CONDITION [id number] Patient Condition: [id number] Stable HOME CARE INSTRUCTIONS: Nora Your diet recommendation is: Silverio NPO FOLLOW UP/APPOINTMENTS Follow-up Plan Transfer to [facility] FRANKLIN ESPITIA NP January 22, 2019 11:50
[2019-01-22] MEDS ORDERED: CIPR500T4 IV (11:52)
[2019-01-22] MEDS ORDERED: PANT40TA3 IV (11:52)
[2019-01-22] MEDS ORDERED: METR-122 IV* (11:52)
[2019-01-22] MEDS ORDERED: PANTOPRAZOLE 40 MG INJ IV SCH (21:00)
== END 2019-01-22 19:00 | disposition short-term general hospital (02) | DRG 389 ==
LOC: E/R 18:38 → TEL 22:45
PROVIDERS: ADMIT Family Medicine; ATTEND Family Medicine
PROC: 4A133R1 Monitoring of Arterial Saturation, Peripheral, Percutaneous Approach (ICD-10-PCS; principal; 2019-01-20)
DX: K56.609 Unspecified intestinal obstruction, unspecified as to partial versus complete obstruction (principal); E87.2 Acidosis; N17.9 Acute kidney failure, unspecified; K52.9 Noninfective gastroenteritis and colitis, unspecified; E66.9 Obesity, unspecified; Z68.34 Body mass index [BMI] 34.0-34.9, adult; E11.9 Type 2 diabetes mellitus without complications; Z79.84 Long term (current) use of oral hypoglycemic drugs; Z87.891 Personal history of nicotine dependence
CPT/HCPCS: 36415; 71045; 74176; 74250; 80053; 80061; 81001; 81003; 82270; 82728; 82803; 82962; 83036; 83540; 83605; 83735; 84100; 84443; 84484; 85025; 85610; 85730; 87045; 87075; 87086; 87177; 87205; 93005; 96365; 96375; C9113; J0744; J1170; J1815; J2270; J2405; J2543; J3370; J3475; J7030; J7040; J7050; Q9967